=== PATIENT | female | born 1940 | race Caucasian/White ===

== ENCOUNTER 2016-08-04 13:14 | Emergency (ER) | payer OTHER ==
[~2016-08-04 13:14] MED LIST: AUGMENTIN 875 M1 TAB PO; LEVOTHYROXINE88 MCG PO; MECLIZINE HCL25 MG PO; MULTI-DAY VITA1 EACH PO; NORTRIPTYLINE H25 M2 PO; TRANSDERM-SCOP1 EACH TOP
[2016-08-04 13:27] VITALS: BP 143/67
--- NOTE | 2016-08-04 13:42 | ED GI/GU/ABDOMINAL COMPLAINT ---
History of Present Illness General Chief Complaint: Abdominal Pain/Flank Pain Stated Complaint: ABD PAIN Source: patient, old records Exam Limitations: no limitations Vital Signs & Intake/Output Vital Signs & Intake/Output Vital Signs Date Time Temp Pulse Resp B/P Pulse O2 O2 Flow FiO2 Ox Delivery Rate 08/04 1412 99 Room Air 08/04 1327 97.9 76 22 143/67 98 Allergies Coded Allergies: NO KNOWN ALLERGIES (03/09/16) Reconcile Medications Ciprofloxacin HCl (Cipro) 500 MG TABLET 1 TAB PO BID diverticulitis Escitalopram Oxalate 10 MG TABLET 1 TAB PO DAILY MENTAL HEALTH (Reported) Levothyroxine Sodium 88 MCG TABLET 1 TAB PO DAILY AC THYROID (Reported) Metronidazole 500 MG TABLET 1 TAB PO TID diverticulitis Multivitamin (Multi-Day Vitamins) 1 EACH TABLET 1 TAB PO DAILY SUPPLEMENT ( Reported) Triage Note: PER PT ABD PAIN LOW PELVIC AREA TO BACK TAIL BONE X 3 DAYS PER PT THOUGHT I PULLED A MUSCLE BUT IT STILL HURTS, OCCAS DIARRHEA X 3 DAYS TOO Triage Nurses Notes Reviewed? yes ? n Is pt currently ? No HPI: Patient is a 76-year-old female presents complaining of lower abdominal pain that radiates to her back. Pain onset 2 days ago. 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 Pain is waxing and waning currently mild, worsens with walking, palpation, and when she has the urge to have a bowel movement. Fever of 101F yesterday. A couple episodes of loose stool today. Decreased appetite since onset of pain. Patient denies nausea, vomiting, urinary symptoms (DEV TAVARES,REYNOLD) Past History Travel History Traveled to [place] past 21 day No Medical History Any Pertinent Medical History? 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 No (REYNOLD SILVESTRE) Review of Systems Review of Systems Constitutional: Reports: fever, malaise. EENTM: Reports: no symptoms. Respiratory: Denies: cough, short of breath. Cardiovascular: Denies: chest pain. GI: Reports: see HPI. Genitourinary: Denies: dysuria, frequency. Musculoskeletal: Reports: back pain. Skin: Reports: no symptoms. Neurological/Psychological: Reports: no symptoms. Hematologic/Endocrine: Reports: no symptoms. Immunologic/Allergic: Reports: no symptoms. (REYNOLD SILVESTRE) Physical Exam Physical Exam General Appearance: alert, awake Head: atraumatic, normal appearance Eyes: Bilateral: normal appearance, PERRL, EOMI. Ears, Nose, Throat, Mouth: hearing grossly normal, moist mucous membrane Neck: normal inspection, supple, full range of motion Respiratory: normal breath sounds, chest non-tender, no respiratory distress, lungs clear Cardiovascular: regular rate/rhythm (no appreciable murmur) Gastrointestinal: normal bowel sounds, soft, left lower quadrant tenderness with mild guarding Back: normal inspection, normal range of motion, no vertebral tenderness, no cva tenderness Extremities: normal range of motion Neurologic/Psych: no motor/sensory deficits, awake, alert, oriented x 3, normal gait, normal mood/affect Skin: intact, normal color, warm/dry Core Measures ACS in differential dx? No Severe Sepsis Present: No Septic Shock Present: No (REYNOLD SILVESTRE) Progress Differential Diagnosis: AAA, diverticulitis, hepatitis, hernia, ischemic bowel, inflamm bowel dis, kidney stone, ovarian cyst, ovarian torsion, pancreatitis, PID/cervicitis, PUD/GERD, perforated viscous, SBO, UTI/pyelo, muscle strain Plan of Care: Orders Procedure Date/time Status LIPASE 08/04 1349 Complete LACTIC ACID 08/04 1349 Complete COMPREHENSIVE METABOLIC PANEL 08/04 1349 Complete CBC WITHOUT DIFFERENTIAL 08/04 1349 Complete Laboratory Tests 08/04/16 1649: Lactic Acid Cancelled 08/04/16 1404: Anion Gap 8, Estimated GFR > 60, BUN/Creatinine Ratio 20.0, Glucose 100 H, Lactic Acid 0.6 L, Calcium 9.1, Total Bilirubin 0.7, AST 12 L, ALT 23, Alkaline Phosphatase 45, Total Protein 5.8 L, Albumin 3.3 L, Globulin 2.5, Albumin/Globulin Ratio 1.3, Lipase 52, CBC w Diff NO MAN DIFF REQ, RBC 3.92 L, MCV 82.0, MCH 27.1, RDW 13.2, MPV 7.0 L, Gran % 66.3, Lymphocytes % 21.0, Monocytes % 10.3 H, Eosinophils % 1.8, Basophils % 0.6, Absolute Granulocytes 4.5, Absolute Lymphocytes 1.4, Absolute Monocytes 0.7 H, Absolute Eosinophils 0.1, Absolute Basophils 0, PUBS MCHC 33.0 08/04/16 1349: Urine Color Cancelled, Urine Clarity Cancelled, Urine pH Cancelled, Ur Specific [place] Cancelled, Urine Protein Cancelled, Urine Ketones Cancelled, Urine Nitrite Cancelled, Urine Bilirubin Cancelled, Urine Urobilinogen Cancelled, Ur Leukocyte Esterase Cancelled, Ur Microscopic Cancelled, Urine Hemoglobin Cancelled, Urine Glucose Cancelled Patient declined pain medication or antinausea medication on initial exam. 08/04/2016 2:11:14 PM: Discussed with Dr. Orellana 08/04/2016 3:39:38 PM: Results of labs and CT scan discussed with patient. Patient nontoxic appearing, tolerating oral intake, afebrile, white blood cell count and lactic acid unremarkable. Appears stable to be discharged on oral antibiotics with close outpatient follow-up. (DEV TAVARES,REYNOLD) Diagnostic Imaging: Viewed by Me: CT Scan. Discussed w/RAD: CT Scan. Radiology Impression: PATIENT: CORKY MI PRESENT AGE: 76 PATIENT ACCOUNT NO: [id number] : 40 LOCATION: [facility] [place] ORDERING PHYSICIAN: REYNOLD TAVARES SERVICE DATE: 08/04/16 EXAM TYPE: CAT - CT ABD & PELVIS W IV CONTRAST EXAMINATION: CT ABDOMEN AND PELVIS WITH CONTRAST CLINICAL INFORMATION: Left lower quadrant abdominal pain and tenderness COMPARISON: , Fever 10/30/2011 CT scan abdomen and pelvis TECHNIQUE: Multidetector volumetric imaging was performed of the abdomen and pelvis before and after the IV administration of 95 mL of Optiray 320 intravenous contrast. Sagittal and coronal reformatted images were obtained on the technologist's workstation. DLP: 853.78 mGy-cm FINDINGS: LUNG BASES: The visualized lung bases are unremarkable. LIVER, GALLBLADDER, AND BILIARY TREE: The liver is normal in size, shape, and attenuation. No focal hepatic lesion or biliary ductal dilatation is present. The gallbladder is absent, prior cholecystectomy. PANCREAS: Unremarkable. SPLEEN: Unremarkable. ADRENAL GLANDS: The right adrenal gland is unremarkable. There is an 2.0 cm fat density mass in the left adrenal gland, representing a fat-containing adrenal adenoma. It has not changed since the comparison CT scan. KIDNEYS AND URETERS: The kidneys are normal in size, shape, and attenuation. No hydronephrosis, hydroureter, or calculi seen. No perinephric stranding. BLADDER: Unremarkable. GASTROINTESTINAL TRACT: The stomach, duodenum and small bowel loops are unremarkable. The appendix is visualized and is within normal limits. Severe diverticular disease of colon noted. There are inflammatory changes involving the mid to distal sigmoid colon, surrounding some inflamed diverticuli and represent changes of acute diverticulitis. There is no CT evidence of microperforation or pericolonic collection. The inflammation involves a segment of sigmoid colon that measures about 10 cm in length. There is no pelvic or abdominal free fluid or free air. ABDOMINAL WALL: There are 3 fat-containing anterior abdominal wall hernias, located just above, at the level and below the umbilicus. LYMPH NODES: Multiple mildly enlarged mesenteric lymph nodes are seen in the left lower quadrant of the abdomen, and at the root of mesentery likely reactive to the sigmoid diverticulitis. VASCULAR: Atherosclerotic calcifications of abdominal aorta and major branches noted. No aneurysmal dilatation. PELVIC VISCERA: The uterus is absent. No adnexal masses seen. OSSEOUS STRUCTURES: Degenerative changes at L4- L5 and L5-S1 with vacuum disc phenomenon and marginal osteophytosis noted. There is mild decreased vertebral body height of L1 within the sclerosis of the L1 vertebral body, fairly similar to the comparison CT scan and suggestive of prior vertebroplasty. IMPRESSION: 1. Acute diverticulitis involving the mid to distal sigmoid colon without evidence of perforation or pericolonic collection. 2. Fat- containing left adrenal adenoma. 3. Prior cholecystectomy. 4. Fat-containing anterior abdominal wall hernia. 5. Atherosclerosis. DICTATED BY: SAMUEL SANTIZO MD DATE/TIME DICTATED:08/04/161506 SOAP TENDER:NINI DATE/TIME TRANSCRIBED:08/04/161506 CONFIDENTIAL, DO NOT COPY WITHOUT APPROPRIATE AUTHORIZATION. <Electronically signed in Other Vendor System> SIGNED BY: SAMUEL SANTIZO MD 08/04/16 1532 Initial ED EKG: none (REYNOLD SILVESTRE) Departure Departure Time of Disposition: 1540 Disposition: HOME OR SELF CARE Condition: Stable Clinical Impression Primary Impression: Acute diverticulitis Referrals: SANDRA WAKEFIELD,EMILI Pascal (PCP/Family) Additional Instructions: Clear liquid diet for the next 24 hours then slowly advance your diet as tolerated. Follow-up with your primary doctor within the next 2-3 days for recheck and further evaluation. Call tomorrow morning for appointment. Return to the emergency department if you develop fevers, your pain is increasing, your are unable to stay hydrated, or worsening of symptoms. Departure Forms: Customer Survey General Discharge Information Prescriptions: Current Visit Scripts Ciprofloxacin HCl (Cipro) 1 TAB PO BID #20 TAB Metronidazole 1 TAB PO TID #30 TAB (REYNOLD SILVESTRE) PA/AFFILIATE MARKETING MANAGER Co-Sign Statement Statement: ED Attending supervision documentation- [X] I saw and evaluated the patient. I have also reviewed all the pertinent lab results and diagnostic results. I agree with the findings and the plan of care as documented in the PA's/AFFILIATE MARKETING MANAGER's documentation. [X] I have reviewed the ED Record and agree with the PA's/AFFILIATE MARKETING MANAGER's documentation. [] Additions or exceptions (if any) to the PAs/AFFILIATE MARKETING MANAGER's note and plan are summarized below: [] (WEI WAKEFIELD,SARA Hay)
[2016-08-04] MEDS ORDERED: ESCITALOPRAM OX10 MG PO (13:55)
[2016-08-04 14:18] LABS: ABSOLUTE BASOPHIL COUNT 0 /CUMM (0.0-0.2); ABSOLUTE EOSINOPHIL COUNT 0.1 /CUMM (0.0-0.7); ABSOLUTE GRANULOCYTE CT 4.5 /CUMM (1.4-6.5); ABSOLUTE LYMPH COUNT 1.4 /CUMM (1.2-3.4); ABSOLUTE MONOCYTE COUNT 0.7 /CUMM (0.10-0.60); BASOPHIL % 0.6 % (0.0-2.0); EOSINOPHIL % 1.8 % (0-5); GRANULOCYTE % 66.3 % (42.2-75.2); HEMATOCRIT 32.2 % (37-47); MEAN CORPUSCULAR HGB 27.1 PG (27.0-31.0); PLATELET COUNT 210 /CUMM (130-400); RBC DISTRIBUTION WIDTH 13.2 % (11.5-14.5); RED BLOOD CELL CT 3.92 /CUMM (4.20-5.40); WHITE BLOOD CELL COUNT 6.9 /CUMM (4.8-10.8)
--- NOTE | 2016-08-04 15:32 | CT SCAN REPORT ---
EXAMINATION: CT ABDOMEN AND PELVIS WITH CONTRAST CLINICAL INFORMATION: Left lower quadrant abdominal pain and tenderness COMPARISON: , Fever 10/30/2011 CT scan abdomen and pelvis TECHNIQUE: Multidetector volumetric imaging was performed of the abdomen and pelvis before and after the IV administration of 95 mL of Optiray 320 intravenous contrast. Sagittal and coronal reformatted images were obtained on the technologist's workstation. DLP: 853.78 mGy-cm FINDINGS: LUNG BASES: The visualized lung bases are unremarkable. LIVER, GALLBLADDER, AND BILIARY TREE: The liver is normal in size, shape, and attenuation. No focal hepatic lesion or biliary ductal dilatation is present. The gallbladder is absent, prior cholecystectomy. PANCREAS: Unremarkable. SPLEEN: Unremarkable. ADRENAL GLANDS: The right adrenal gland is unremarkable. There is an 2.0 cm fat density mass in the left adrenal gland, representing a fat-containing adrenal adenoma. It has not changed since the comparison CT scan. KIDNEYS AND URETERS: The kidneys are normal in size, shape, and attenuation. No hydronephrosis, hydroureter, or calculi seen. No perinephric stranding. BLADDER: Unremarkable. GASTROINTESTINAL TRACT: The stomach, duodenum and small bowel loops are unremarkable. The appendix is visualized and is within normal limits. Severe diverticular disease of colon noted. There are inflammatory changes involving the mid to distal sigmoid colon, surrounding some inflamed diverticuli and represent changes of acute diverticulitis. There is no CT evidence of microperforation or pericolonic collection. The inflammation involves a segment of sigmoid colon that measures about 10 cm in length. There is no pelvic or abdominal free fluid or free air. ABDOMINAL WALL: There are 3 fat-containing anterior abdominal wall hernias, located just above, at the level and below the umbilicus. LYMPH NODES: Multiple mildly enlarged mesenteric lymph nodes are seen in the left lower quadrant of the abdomen, and at the root of mesentery likely reactive to the sigmoid diverticulitis. VASCULAR: Atherosclerotic calcifications of abdominal aorta and major branches noted. No aneurysmal dilatation. PELVIC VISCERA: The uterus is absent. No adnexal masses seen. OSSEOUS STRUCTURES: Degenerative changes at L4-L5 and L5-S1 with vacuum disc phenomenon and marginal osteophytosis noted. There is mild decreased vertebral body height of L1 within the sclerosis of the L1 vertebral body, fairly similar to the comparison CT scan and suggestive of prior vertebroplasty. IMPRESSION: 1. Acute diverticulitis involving the mid to distal sigmoid colon without evidence of perforation or pericolonic collection. 2. Fat-containing left adrenal adenoma. 3. Prior cholecystectomy. 4. Fat-containing anterior abdominal wall hernia. 5. Atherosclerosis.
[2016-08-04] MEDS ORDERED: CIPRO500 M1 PO (15:42)
[2016-08-04] MEDS ORDERED: METRONIDAZOLE500 M1 PO (15:42)
== END 2016-08-04 15:52 ==
LOC: ERH 13:14
PROVIDERS: Physician Assistant
DX: K57.92 Diverticulitis of intestine, part unspecified, without perforation or abscess without bleeding (principal)
CPT/HCPCS: 74177

== ENCOUNTER 2016-11-08 02:45 | Inpatient (IN) | payer OTHER ==
[~2016-11-08] VITALS: Ht 154.9 cm; Wt 79.8 kg
[~2016-11-08 02:45] MED LIST changes: +CIPRO500 M1 PO; +ESCITALOPRAM OX10 MG PO; +METRONIDAZOLE500 M1 PO
--- NOTE | 2016-11-08 03:20 | NUR ---
ARRIVED ER 1 AMBULATORY, C/O LOWER ABD PAIN FOR SEVERAL DAYS,NORMAL BM,HX DIVERTICULITIS
--- NOTE | 2016-11-08 04:20 | NUR ---
EVALUATED BY DR TOM
--- NOTE | 2016-11-08 04:26 | ED GI/GU/ABDOMINAL COMPLAINT ---
See Addendum History of Present Illness General Chief Complaint: Abdominal Pain/Flank Pain Stated Complaint: PT C/O ABD PAIN X'S "FEW DAY'S" DENIES V/D Source: patient, old records Exam Limitations: no limitations Vital Signs & Intake/Output Vital Signs & Intake/Output Vital Signs Date Time Temp Pulse Resp B/P B/P Pulse O2 O2 Flow FiO2 Mean Ox Delivery Rate 11/08 0633 98.9 70 18 134/61 95 Room Air 11/08 0321 97.5 88 18 148/78 95 Room Air Allergies Coded Allergies: NO KNOWN ALLERGIES (03/09/16) Reconcile Medications Ciprofloxacin HCl (Cipro) 500 MG TABLET 1 TAB PO BID diverticulitis Escitalopram Oxalate 10 MG TABLET 1 TAB PO DAILY MENTAL HEALTH (Reported) Levothyroxine Sodium 88 MCG TABLET 1 TAB PO DAILY AC THYROID (Reported) Metronidazole 500 MG TABLET 1 TAB PO TID diverticulitis Multivitamin (Multi-Day Vitamins) 1 EACH TABLET 1 TAB PO DAILY SUPPLEMENT ( Reported) Triage Note: ARRIVED ER 1 AMBULATORY, C/O LOWER ABD PAIN FOR SEVERAL DAYS,NORMAL BM,HX DIVERTICULITIS Triage Nurses Notes Reviewed? yes LMP (ages 10-50): post menopausal ? n Is pt currently ? No Onset: 3 days Duration: day(s): Timing: recent history Quality/Severity: cramping, moderate, severe Location: left lower quadrant, periumbilical Radiation: no radiation Activities at Onset: none Prior Abdominal Problems: similar symptoms Past Sexual History: Unobtainable at this time Modifying Factors: Worsens With: movement, palpation. Associated Symptoms: abdominal pain HPI: 3 days prior to admission patient complains of progressive left lower quadrant crampy moderate to severe pain radiating the periumbilical area. She denies fever chills nausea vomiting diarrhea chest pain cough shortness of breath headache dysuria rash bleeding (ALEJANDRO WAKEFIELD,KARLO) Past History Travel History Traveled to [place] past 21 day No Medical History Any Pertinent Medical History? 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 No (KARLO ALLEN MD) Review of Systems Review of Systems Constitutional: Reports: no symptoms. EENTM: Reports: no symptoms. Respiratory: Reports: no symptoms. Cardiovascular: Reports: no symptoms. GI: Reports: see HPI, abdominal pain. Genitourinary: Reports: no symptoms. Musculoskeletal: Reports: no symptoms. Skin: Reports: no symptoms. Neurological/Psychological: Reports: no symptoms. Hematologic/Endocrine: Reports: no symptoms. Immunologic/Allergic: Reports: no symptoms. All Other Systems: Reviewed and Negative (KARLO ALLEN MD) Physical Exam Physical Exam General Appearance: well developed/nourished, alert, awake, anxious, moderate distress, obese Head: atraumatic, normal appearance Eyes: Bilateral: normal appearance, PERRL, EOMI, normal inspection. Ears, Nose, Throat, Mouth: hearing grossly normal, moist mucous membrane Neck: normal inspection, supple, full range of motion, normal alignment Respiratory: normal breath sounds, chest non-tender, no respiratory distress, quiet respiration, lungs clear Cardiovascular: regular rate/rhythm, normal peripheral pulses, norml femoral pulses equa Peripheral Pulses: 4+ carotid (R), 4+ carotid (L) Gastrointestinal: normal bowel sounds, soft, guarding, rebound, tenderness Back: normal inspection, normal range of motion Extremities: normal range of motion, no ligament instability Neurologic/Psych: no motor/sensory deficits, awake, alert, oriented x 3, normal gait, normal mood/affect, wash rack operator II-XII nml as tested Skin: intact, normal color, warm/dry Core Measures ACS in differential dx? No Severe Sepsis Present: No Septic Shock Present: No (KARLO ALLEN MD) Progress Differential Diagnosis: bowel obstruction, diverticulitis, hernia Plan of Care: Orders Procedure Date/time Status URINALYSIS 11/08 424 Complete LIPASE 11/08 424 Complete COMPREHENSIVE METABOLIC PANEL 11/08 424 Complete CBC WITHOUT DIFFERENTIAL 11/[address] ABD & PELVIS W IV CONTRAST 11/08 424 Active Laboratory Tests 11/08/16 0455: Urinalysis MOD H, Urine Color YEL, Urine Clarity HAZY H, Urine pH 6.0, Ur Specific [place] 1.025, Urine Protein TRACE H, Urine Ketones NEG, Urine Nitrite NEG, Urine Bilirubin NEG, Urine Urobilinogen 1.0, Ur Leukocyte Esterase SMALL H , Ur Microscopic SEDIMENT EXAMINED, Urine WBC 5-10 H, Ur Epithelial Cells MOD H, Urine Bacteria MOD H, Urine Mucus MOD H, Urine Hemoglobin NEG, Urine Glucose NEG 11/08/16 0440: Anion Gap 7, Estimated GFR > 60, BUN/Creatinine Ratio 20.0, Glucose 113 H, Calcium 8.8, Total Bilirubin 0.9, AST 14, ALT 23, Alkaline Phosphatase 52, Total Protein 6.3, Albumin 4.0, Globulin 2.3, Albumin/Globulin Ratio 1.7, Lipase 87, CBC w Diff NO MAN DIFF REQ, RBC 4.37, MCV 82.4, MCH 27.5, RDW 15.0 H, MPV 7.3 L, Gran % 68.7, Lymphocytes % 20.1 L, Monocytes % 9.3, Eosinophils % 1.4, Basophils % 0.5, Absolute Granulocytes 4.8, Absolute Lymphocytes 1.4, Absolute Monocytes 0.6, Absolute Eosinophils 0.1, Absolute Basophils 0, PUBS MCHC 33.4 Initial ED EKG: none Hand-Off Endorsed To: NAYELI MATTHEW DO Endorsed Time: 0700 Pending: CT (KARLO ALLEN MD) Departure Departure Disposition: STILL A PATIENT Condition: Stable Clinical Impression Primary Impression: Diverticulitis Qualifiers: Diverticulitis site: unspecified part of intestinal tract Diverticulitis bleeding: without bleeding Diverticulitis complication: unspecified complication status Qualified Code: K57.92 - Diverticulitis of intestine, part unspecified, without perforation or abscess without bleeding Referrals: EMILI FLORES MD (PCP/Family) Departure Forms: Customer Survey General Discharge Information (KARLO ALLEN MD) Departure Comments 11/08/16 7:16 am The patient was signed out to me by Dr. Allen. She is pending CT scan of the abdomen and pelvis abdomen is soft and she has diffuse tenderness. Adequate pain relief with morphine (NAYELI MATTHEW DO)
--- NOTE | 2016-11-08 04:45 | NUR ---
IV ESTABLISHED LABS DRAWN AND SENT MEDICATED WITH TORADOL AND ZOFRAN ORDERED
[2016-11-08 04:55] LABS: ABSOLUTE BASOPHIL COUNT 0 /CUMM (0.0-0.2); ABSOLUTE EOSINOPHIL COUNT 0.1 /CUMM (0.0-0.7); ABSOLUTE GRANULOCYTE CT 4.8 /CUMM (1.4-6.5); ABSOLUTE LYMPH COUNT 1.4 /CUMM (1.2-3.4); ABSOLUTE MONOCYTE COUNT 0.6 /CUMM (0.10-0.60); BASOPHIL % 0.5 % (0.0-2.0); EOSINOPHIL % 1.4 % (0-5); GRANULOCYTE % 68.7 % (42.2-75.2); HEMATOCRIT 36.1 % (37-47); MEAN CORPUSCULAR HGB 27.5 PG (27.0-31.0); MEAN CORPUSCULAR HGB CONC 33.4 G/DL (33.0-37.0); MEAN CORPUSCULAR VOLUME 82.4 FL (81.0-99.0); MEAN PLATELET VOLUME 7.3 FL (7.4-10.4); PLATELET COUNT 205 /CUMM (130-400); RED BLOOD CELL CT 4.37 /CUMM (4.20-5.40)
--- NOTE | 2016-11-08 06:25 | NUR ---
PT AWARE OF WAIT FOR CAT SCAN STILL C/O ALOT OF PAIN MORPHINE [address] ALLEN
--- NOTE | 2016-11-08 06:34 | NUR ---
ASSUMED CARE, PT STATES THAT SHE HAS BEEN HAVING L SIDE ABD PAIN THAT RADIATES ACROSS ABDOMEN AND INTO HER GROIN AREA FOR THE PAST 2 DAYS, PT DENIES PAIN AT THIS TIME, STATES THAT SHE WAS JUST MEDICATED WITH MORPHINE PRIOR TO THIS NURSE ARRIVAL. DENIES N/V AT THIS TIME. IV FLUIDS INFUSING. PT AWARE THAT SHE IS WAITING FOR CT SCAN.
--- NOTE | 2016-11-08 07:35 | NUR ---
PT TO CT SCAN VIA STRETCHER AT THIS TIME
--- NOTE | 2016-11-08 08:27 | CT SCAN REPORT ---
EXAMINATION: CT ABDOMEN AND PELVIS WITH CONTRAST CLINICAL INFORMATION: Left lower quadrant abdominal tenderness, guarding, rebound. History of diverticulitis. COMPARISON: CT abdomen and pelvis of 08/04/2016, 10/30/2011, 07/22/2010. Abdominal MRI of 10/31/2011. Limited abdominal ultrasound of 10/30/2011. Chest x-ray of 12/24/2011. TECHNIQUE: Multidetector volumetric CT imaging of the abdomen and pelvis was acquired following intravenous administration of 95 mL of Optiray 320. Post processing was performed at a dedicated workstation. Multiplanar 2-D reformatted images are submitted. DLP: 779.83 mGy-cm FINDINGS: The lung bases are clear. The gallbladder is surgically absent. No intrahepatic biliary ductal dilatation. Mild dilatation of the proximal common bile duct measuring 1.3 cm is a stable finding and can be seen in the setting of prior cholecystectomy. No filling defect is noted in the common bile duct. The liver is normal in size, shape and attenuation. A small subcapsular hypodense lesion in hepatic segment 7 measuring 0.8 cm (series 2, image 15) is a stable finding since the previous study of 2010 and may represent a cyst or a hemangioma. No new liver lesions. The spleen, pancreas, right adrenal gland and kidneys are unremarkable. A 1.4 cm splenule is noted on the anterior medial aspect of the mid spleen. 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 There is moderate diverticulosis of the mid to distal descending colon as well as the sigmoid colon. Pericolonic inflammatory changes are noted at the junction of the distal descending colon and the proximal sigmoid colon with thickening of the small segment of the proximal sigmoid colon which is likely reactive. The findings are consistent with acute diverticulitis. On the previous study of 08/04/2016, a mid segment of the sigmoid colon was involved. There is no evidence of focal diverticular perforation or abscess collection. No evidence of thickening of the wall of the remainder of the colon. An appendix is not clearly identified, however, there are no inflammatory changes in the expected location of the appendix. The stomach and small bowel are not dilated. There is no evidence of free intraperitoneal air or fluid. No lymphadenopathy. The aortoiliac vessels are normal in caliber. There is mild scattered calcific atherosclerosis of the aortoiliac vessels. A fat-containing umbilical hernia is noted with the hernial neck measuring 1.6 cm in craniocaudal and 2.1 cm in transverse dimension. The hernia measures 2.9 x 2.7 x 4.2 cm. There is a stable infraumbilical lower abdominal anterior midline hernia containing fat, approximately 7 cm caudal to the umbilicus measuring 3.8 x 2.1 x 5.1 cm with the hernial neck measuring 1.3 x 1.2 cm in craniocaudal and transverse dimensions; this hernia has not significantly changed since the study of 2010. The uterus is not seen, likely surgically absent. No adnexal mass. The urinary bladder is underdistended, however, unremarkable. There is no evidence of suspicious osseous lesion. Vertebroplasty changes are again noted in the body of L1. On the rickshaw driver view, note is made of a moderate anterior wedge compression of the T7 and T8 vertebral bodies, a stable finding when compared to the previous chest x-ray of 12/24/2011. IMPRESSION: 1. Findings consistent with acute diverticulitis involving a portion of the distal descending colon and the proximal sigmoid colon with reactive wall thickening of the proximal sigmoid colon. No evidence of focal diverticular perforation or abscess collection. No free intraperitoneal air or fluid. 2. A 2.0 x 1.6 cm left adrenal myelolipoma is stable since the previous study of 2010. 3. Anterior abdominal wall fat-containing hernias as described above. 4. A subcentimeter low-attenuation hepatic segment 7 lesion is stable since the previous study of 2010 and may represent a cyst or a hemangioma.
--- NOTE | 2016-11-08 09:21 | NUR ---
PT AWAKE AND ALERT WATCHING TV AT THIS TIME. PAIN 09/28 . PT AWARE THAT WAITING ON CT RESULTS
--- NOTE | 2016-11-08 09:35 | NUR ---
UNASYN INFUSING AT THIS TIME
--- NOTE | 2016-11-08 09:45 | NUR ---
DR MATTHEW AT BEDSIDE TO DISCUSS PLAN OF CARE AT THIS TIME. PT AWARE THAT SHE WILL BE ADMITTED ETO THE HOSPITAL DUE TO DIVERTICULITIS
--- NOTE | 2016-11-08 10:17 | NUR ---
PT MEDICATED WITH MORPHINE 4MG IV PER ORDER FOR 11/28 LLQ PAIN THAT RADIATES TO MID ABD AT THIS TIME
--- NOTE | 2016-11-08 10:22 | NUR ---
HOUSE STAFF AT BEDSIDE
--- NOTE | 2016-11-08 10:41 | NUR ---
BED ASSIGNMENT 209-2
--- NOTE | 2016-11-08 10:56 | History & Physical ---
General Information and HPI MD Statement: I have seen and personally examined CORKY MI and documented this H&P. The patient is a 76 year old F who presented with a patient stated chief complaint of [ABDOMINAL PAIN]. Source of Information: patient Exam Limitations: no limitations History of Present Illness: Patient is a 76-year-old postmenopausal female presented with chief complaints of abdominal pain. Pain is started since 7 days, intermittent in nature, located in left lower quadrant and periumbilical area, cramping in nature, moderate to severe in intensity,radiating to back, aggravated with movement and palpation. She had associated nausea and increase number of bowel movemnets although stool was normal in consistency. She was diagnosed as having diverticulitis 20 yrs ago and she was admitted for that in [facility] for that for 4 -5 days. Her last episode was 3 months ago and for which she was given 14 days of antibiotics as an outpatient. She had family Hx of rectal cancer in mother and she because of that. She had her colonoscopy in age of 50 and multiple polyps were removed. She had her last colonoscopy 3 yrs ago and that was normal. Denies any history of fever, chills, vomiting, chest pain, shortness of breath, headache,trauma and dysuria. Past medical history -hypothyroidism, depression, history of laparoscopic cholecystectomy(2011), history of hysterectomy, Vertebroplasty L1, hemilaminectomy, L4, L5 left. Personal history - She lives with granddaughter, quit smoking 40 years ago, dringk beers occasionally. Family bdygvic-dsldsh-edxrfg cancer - diet because of that, sister - diabetes. Allergies/Medications Allergies: Coded Allergies: NO KNOWN ALLERGIES (03/09/16) Home Med list Ciprofloxacin HCl (Cipro) 500 MG TABLET 1 TAB PO BID diverticulitis Escitalopram Oxalate 10 MG TABLET 1 TAB PO DAILY MENTAL HEALTH (Reported) Levothyroxine Sodium 88 MCG TABLET 1 TAB PO DAILY AC THYROID (Reported) Metronidazole 500 MG TABLET 1 TAB PO TID diverticulitis Multivitamin (Multi-Day Vitamins) 1 EACH TABLET 1 TAB PO DAILY SUPPLEMENT ( Reported) Past History Travel History Traveled to [place] past 21 day No Medical History Neurological: NONE EENT: NONE Cardiovascular: NONE Respiratory: NONE Gastrointestinal: diverticulitis Hepatic: cholelithiasis Renal: NONE Musculoskeletal: NONE Psychiatric: depression Endocrine: hypothyroidism Blood Disorders: NONE Cancer(s): NONE FASHION EDITOR/Reproductive: NONE History of MRSA: No History of VRE: No History of CDIFF: No Tetanus Vaccine: 03/15/14 Surgical History Surgical History: cholecystectomy, hysterectomy Past Family/Social History Family History Relations & Conditions if any MOTHER Rectal cancer Psychosocial History Services at Home: None Sexual History Past Sexual History Unobtainable at this time Review of Systems Review of Systems Constitutional: Denies: no symptoms, see HPI, chills, diaphoresis, fever, malaise, weakness, unexplained weight loss. EENTM: Denies: no symptoms. Cardiovascular: Denies: no symptoms. Exam & Diagnostic Data Last 24 Hrs of Vital Signs/I&O Vital Signs Date Time Temp Pulse Resp B/P B/P Pulse O2 O2 Flow FiO2 Mean Ox Delivery Rate 11/08 0921 97.1 64 18 108/53 96 Room Air 11/08 0633 98.9 70 18 134/61 95 Room Air 11/08 0321 97.5 88 18 148/78 95 Room Air Intake & Output 11/08 1600 11/08 0800 11/08 0000 Intake Total 1000 Output Total Balance 1000 Intake, IV 1000 Patient 80.739 kg Weight Weight Reported by Patient Measurement Method Physical Exam General Appearance Alert, Oriented X3, Cooperative, No Acute Distress Skin No Rashes HEENT Atraumatic, PERRLA, EOMI, antrior teeths are bridged with orthoctics Neck Supple, No JVD, No thryomegaly, No LAD Cardiovascular Normal S1, Normal S2 Lungs Clear to Auscultation, Normal Air Movement Abdomen Soft, tenderness located in left side of middle part of abdoman Neurological Normal Speech Extremities No Clubbing, No Cyanosis, No Edema, Normal Pulses Vascular Normal Pulses, Pulses Symmetrical Last 24 Hrs of Labs/Rory: Laboratory Tests 11/08/16 0455: Urinalysis MOD H, Urine Color YEL, Urine Clarity HAZY H, Urine pH 6.0, Ur Specific [place] 1.025, Urine Protein TRACE H, Urine Ketones NEG, Urine Nitrite NEG, Urine Bilirubin NEG, Urine Urobilinogen 1.0, Ur Leukocyte Esterase SMALL H , Ur Microscopic SEDIMENT EXAMINED, Urine WBC 5-10 H, Ur Epithelial Cells MOD H, Urine Bacteria MOD H, Urine Mucus MOD H, Urine Hemoglobin NEG, Urine Glucose NEG 11/08/16 0440: Anion Gap 7, Estimated GFR > 60, BUN/Creatinine Ratio 20.0, Glucose 113 H, Calcium 8.8, Total Bilirubin 0.9, AST 14, ALT 23, Alkaline Phosphatase 52, Total Protein 6.3, Albumin 4.0, Globulin 2.3, Albumin/Globulin Ratio 1.7, Lipase 87, CBC w Diff NO MAN DIFF REQ, RBC 4.37, MCV 82.4, MCH 27.5, RDW 15.0 H, MPV 7.3 L, Gran % 68.7, Lymphocytes % 20.1 L, Monocytes % 9.3, Eosinophils % 1.4, Basophils % 0.5, Absolute Granulocytes 4.8, Absolute Lymphocytes 1.4, Absolute Monocytes 0.6, Absolute Eosinophils 0.1, Absolute Basophils 0, PUBS MCHC 33.4 Diagnostic Data EKG Results not done Other Results CT abdoman - moderate diverticulosis of the mid to distal descending colon as well as the sigmoid colon. Pericolonic inflammatory changes at the junction of the distal descending colon and the proximal sigmoid colon with thickening of the small segment of the proximal sigmoid colon which is likely reactive. The findings are consistent with acute diverticulitis. no evidence of focal diverticular perforation or abscess collection Mild dilatation of the proximal common bile duct measuring 1.3 cm is a stable A small subcapsular hypodense lesion in hepatic segment 7 measuring 0.8 cm ( series 2, image 15) is a stable finding since the previous study of 2010 A 2.0 x 1.6 cm left adrenal myelolipoma is stable since the previous study of 2010. Anterior abdominal wall fat-containing hernias Assessment/Plan Assessment: Patient is a 76-year-old postmenopausal female presented with chief complaints of abdominal pain. Vital signs at the time of admission-temperature 97.5, pulse 88, respiratory 18, blood pressure 148/78, SPO2 95% on room air Pertinent labs -hematocrit - 36.1, glucose-113, urinalysis-healthy, protein trace, leukocyte esterase small, WBC 5-10, epithelial cells/bacteria/mucus, moderate CT abdomen/pelvis- moderate diverticulosis of the mid to distal descending colon as well as the sigmoid colon. Pericolonic inflammatory changes at the junction of the distal descending colon and the proximal sigmoid colon with thickening of the small segment of the proximal sigmoid colon which is likely reactive. The findings are consistent with acute diverticulitis. no evidence of focal diverticular perforation or abscess collection Mild dilatation of the proximal common bile duct measuring 1.3 cm is a stable A small subcapsular hypodense lesion in hepatic segment 7 measuring 0.8 cm ( series 2, image 15) is a stable finding since the previous study of 2011 A 2.0 x 1.6 cm left adrenal myelolipoma is stable since the previous study of 2010. Anterior abdominal wall fat-containing hernias Assessment Patient had significant past medical history of acute diverticulitis. She was first diagnosed 20 years ago. She had her last episode 3 months ago and was treated with ciprofloxacin and metronidazole. She recovered well, but again 7 days ago she started having intermittent abdomen pain in left lower quadrant along with an episode of diarrhea. Her pain got worse yesterday, so she came to emergency department. CT scan showed evidence of diverticulitis. So we'll treat her for it. Plan Acute diverticulitis without any evidence of perforation and abscess * Admitted into general medical floor * Pain medication according to the pain scale * We'll continue inj Unasyn 1.5mg IV Q6. * We will continue all home medication. * Regular diet * CODE STATUS-full code * Vitals every shift As Ranked By This Provider Problem List: 1. Diverticulitis Qualifiers Diverticulitis site: unspecified part of intestinal tract Diverticulitis bleeding: without bleeding Diverticulitis complication: unspecified complication status Qualified Code: K57.92 - Diverticulitis of intestine, part unspecified, without perforation or abscess without bleeding 2. Hypothyroid 3. Depression Core Measures/Miscellaneous Acute Coronary Syndrome ACS Diagnosis: No Cerebrovascular Accident CVA/TIA Diagnosis: No Congestive Heart Failure CHF Diagnosis: No VTE (View Protocol) VTE Risk Factors: Age > 40, Obesity No [facility] VTE prophylaxis d/t: No contraindications No VTE Pharm Prophylaxis d/t: No contraindications VTE Diagnosis: No VTE Type: NONE VTE Confirmed by (Test): NONE Sepsis (View Protocol) Severe Sepsis Present: No Septic Shock Septic Shock Present: No Miscellaneous Documentation Attending Case Discussed With: Dr COLUNGA Primary Care Physician: EMILI FLORES MD Patient sees these Specialists none Level of Patient Care: General Medicine
--- NOTE | 2016-11-08 11:08 | NUR ---
ATTEMPTED TO CALL REPORT TO THE FLOOR, NURSE TO CALL BACK FOR REPORT
--- NOTE | 2016-11-08 11:32 | PN- Att Addend ---
Attending Addendum Attending Brief Note Patient seen and examined in the emergency room. Plan of care discussed with the admitting resident and the patient. Available lab work and radiology test reports were reviewed. Patient is a 76-year-old postmenopausal female who came to emergency room last night with left lower quadrant pain more than 3 days duration. Patient has history of multiple episodes of diverticulitis in the past last treated about 3 months ago with oral antibiotics. Pain radiates to periumbilical area, cramping in nature, moderate to severe in intensity, aggravated with movement and palpation. She Denies any history of fever, chills , nausea, vomiting, diarrhea, chest pain, shortness of breath, headache and dysuria. Past medical history was reviewed and is significant for history of hypothyroidism, history of laparoscopic cholecystectomy(2011), history of hysterectomy, Vertebroplasty L1, hemilaminectomy, L4, L5 left and diverticulitis. Family social history was reviewed. Exam: General: Patient awake alert oriented without any distress CVS: S1 plus S2 without any murmur or gallops Chest: Few scattered crepitation without any wheeze. There is no respiratory distress. Abdomen: Soft with the moderate tenderness left lower quadrant ; pulses are present ;no guarding or rebound GLOBAL SAFETY OFFICER: Awake alert oriented without any focal neuro deficit and follows command appropriately Extremities: No edema; no clubbing or cyanosis noted Laboratory Tests 11/08 11/08 0455 0440 Chemistry Sodium (137 - 145 mmol/L) 137 Potassium (3.5 - 5.1 mmol/L) 3.9 Chloride (98 - 107 mmol/L) 102 Carbon Dioxide (22 - 30 mmol/L) 27 Anion Gap (5 - 16) 7 BUN (7 - 17 mg/dL) 12 Creatinine (0.5 - 1.0 mg/dL) 0.6 Estimated GFR (>60 ml/min) > 60 BUN/Creatinine Ratio (7 - 25 %) 20.0 Glucose (65 - 99 mg/dL) 113 H Calcium (8.4 - 10.2 mg/dL) 8.8 Total Bilirubin (0.2 - 1.3 mg/dL) 0.9 AST (14 - 36 U/L) 14 ALT (9 - 52 U/L) 23 Alkaline Phosphatase (<127 U/L) 52 Total Protein (6.3 - 8.2 g/dL) 6.3 Albumin (3.5 - 5.0 g/dL) 4.0 Globulin (1.9 - 4.2 gm/dL) 2.3 Albumin/Globulin Ratio (1.1 - 2.2 %) 1.7 Lipase (23 - 300 U/L) 87 Hematology CBC w Diff NO MAN DIFF REQ WBC (4.8 - 10.8 /CUMM) 7.0 RBC (4.20 - 5.40 /CUMM) 4.37 Hgb (12.0 - 16.0 G/DL) 12.1 Hct (37 - 47 %) 36.1 L MCV (81.0 - 99.0 FL) 82.4 MCH (27.0 - 31.0 PG) 27.5 RDW (11.5 - 14.5 %) 15.0 H Plt Count (130 - 400 /CUMM) 205 MPV (7.4 - 10.4 FL) 7.3 L Gran % (42.2 - 75.2 %) 68.7 Lymphocytes % (20.5 - 51.1 %) 20.1 L Monocytes % (1.7 - 9.3 %) 9.3 Eosinophils % (0 - 5 %) 1.4 Basophils % (0.0 - 2.0 %) 0.5 Absolute Granulocytes (1.4 - 6.5 /CUMM) 4.8 Absolute Lymphocytes (1.2 - 3.4 /CUMM) 1.4 Absolute Monocytes (0.10 - 0.60 /CUMM) 0.6 Absolute Eosinophils (0.0 - 0.7 /CUMM) 0.1 Absolute Basophils (0.0 - 0.2 /CUMM) 0 PUBS MCHC (33.0 - 37.0 G/DL) 33.4 Urines Urinalysis MOD H Urine Color (YEL,AMB,STR) YEL Urine Clarity (CLEAR) HAZY H Urine pH (5.0 - 8.0) 6.0 Ur Specific [place] (1.001 - 1.035) 1.025 Urine Protein (NEG,<30 MG/DL) TRACE H Urine Ketones (NEG) NEG Urine Nitrite (NEG) NEG Urine Bilirubin (NEG) NEG Urine Urobilinogen (0.1 - 1.0 EU/dl) 1.0 Ur Leukocyte Esterase (NEG) SMALL H Ur Microscopic SEDIMENT EXAMINED Urine WBC (0 - 2 /HPF) 5-10 H Ur Epithelial Cells (NONE,FEW) MOD H Urine Bacteria (NEG/NONE) MOD H Urine Mucus (FEW,NONE) MOD H Urine Hemoglobin (NEG) NEG Urine Glucose (N MG/DL) NEG CT abdomen pelvis 1. Findings consistent with acute diverticulitis involving a portion of the distal descending colon and the proximal sigmoid colon with reactive wall thickening of the proximal sigmoid colon. No evidence of focal diverticular perforation or abscess collection. No free intraperitoneal air or fluid. 2. A 2.0 x 1.6 cm left adrenal myelolipoma is stable since the previous study of 2010. 3. Anterior abdominal wall fat-containing hernias as described above. 4. A subcentimeter low-attenuation hepatic segment 7 lesion is stable since the previous study of 2010 and may represent a cyst or a hemangioma. Assessment * acute diverticulitis sigmoid colon- recurrent * Abdominal pain * History of cholecystectomy * History of lumbar surgery * History of depression * History of hypothyroidism Plan * Continue IV Unasyn * Okay to feed patient regular diet * Monitor for fever * Can check CBC in 2 days or if clinical status changes such as developing new fever * Oral Tylenol for mild /moderate pain; IV morphine 2 mg every 4 hours when necessary for severe pain * DVT prophylaxis
--- NOTE | 2016-11-08 12:11 | NUR ---
ATTEMPTED TO CALL REPORT AGAIN, PER NURSE HE IS IN THE MIDDLE OF TRANSFERRING A PT OUT AND WILL NEED TO CALL BACK FOR REPORT
--- NOTE | 2016-11-08 12:18 | NUR ---
PT NOTED TO BE SLEEPING AT THIS TIME, REGULAR RESP RATE NOTED
--- NOTE | 2016-11-08 13:14 | NUR ---
REPORT TO [facility]ERRICK AND TRANSPORT CALLED
--- NOTE | 2016-11-08 13:58 | NUR ---
[id number] PATIENT ARRIVED TO THE FLOOR, A+O X3, ON RA, NO S/O DISTRESS, PAIN 09/28, ORIENTED TO HE ROOM, BED LOW, LOCKED CALL LIGHT IN REACH.
[2016-11-08 14:21] VITALS: BP 140/80
--- NOTE | 2016-11-08 16:41 | Admission Certification ---
Admission Certification Certification Statement - As attending physician, I certify that at the time of - admission, based on clinical presentation, severity of - symptoms, need for further diagnostic testing and - therapeutic interventions, and risk of adverse outcomes - without in-hospital treatment, in my clinical assessment, - this patient requires an acute hospital stay for a minimum - of two nights or longer. I have also considered psychsocial - factors such as support system, advanced age, financial - issues, cognitive issues, and failed out-patient treatments, - past re-admission history, safety of patient, and lack of - compliance as applicable. Specific rationale supporting this admission is: Acute sigmoid diverticulitis
[2016-11-08 22:37] VITALS: BP 120/62
[2016-11-09 06:59] VITALS: BP 120/82
--- NOTE | 2016-11-09 08:50 | NUR ---
PT'S MED REC NOTED. [employer]PA[employer] CONTACTED A FEW MISSING FROM PT'S SCHEDULED MEDS. PENDING NEW ORDERS. WILL CONT TO MONITOR.
--- NOTE | 2016-11-09 10:22 | PN- Housestaff ---
Subjective Follow-up For: Diverticulitis Abdominal pain Subjective: I have seen and examined the patient. The patient was lying comfortably in the bed. The patient complained of constipation and lower abdominal pain. She denies any shortness of breath palpitations or chest pain. There were no overnight acute events. Review of Systems Constitutional: Reports: see HPI. Objective Last 24 Hrs of Vital Signs/I&O Vital Signs Date Time Temp Pulse Resp B/P B/P Pulse O2 O2 Flow FiO2 Mean Ox Delivery Rate 11/09 0659 99.1 86 20 120/82 92 11/08 2237 99.6 87 19 120/62 93 Room Air Intake & Output 11/09 1600 11/09 0800 11/09 0000 Intake Total 550 240 120 Output Total Balance 550 240 120 Intake, IV 150 240 Intake, Oral 400 120 Number 0 0 0 Bowel Movements Physical Exam General Appearance: Alert, Oriented X3, Cooperative Skin: No Rashes, No Breakdown Cardiovascular: Normal S1, Normal S2, No Murmurs Lungs: Clear to Auscultation, Normal Air Movement Abdomen: Soft with the moderate tenderness left lower quadrant ; pulses are present ;no guarding or rebound Neurological: Normal Speech Current Medications: Current Medications Sig/Marissa Start time Last Medication Dose Route Stop Time Status Admin Acetaminophen 500 MG Q6P PRN 11/08 1115 AC PO Ampicillin Sodium/ 1,500 MG Q6 11/08 1800 AC 11/09 Sulbactam Sodium IV 1158 Sodium Chloride 100 ML Citalopram 20 MG DAILY 11/08 2000 DC 11/09 Hydrobromide PO 0835 Escitalopram Oxalate 20 MG DAILY AC 11/10 0700 AC PO Escitalopram Oxalate 10 MG DAILY 11/09 1000 DC PO Levothyroxine Sodium 0.088 MG DAILY AC 11/09 0844 AC 11/09 PO 1049 Morphine Sulfate 2 MG Q4P PRN 11/08 1115 AC 11/09 IV 0642 Multivitamins 1 TAB DAILY 11/09 1000 AC 11/09 Therapeutic PO 1049 Polyethylene Glycol 17 GM AT BEDTIME 11/09 2200 AC PO Polyethylene Glycol 17 GM ONCE ONE 11/09 1215 DC 11/09 PO 11/09 1216 1343 Assessment/Plan Assessment: Patient is a 76-year-old postmenopausal female presented with chief complaints of abdominal pain. Vital signs at the time of admission-temperature 97.5, pulse 88, respiratory 18, blood pressure 148/78, SPO2 95% on room air Pertinent labs -hematocrit - 36.1, glucose-113, urinalysis-healthy, protein trace, leukocyte esterase small, WBC 5-10, epithelial cells/bacteria/mucus, moderate CT abdomen/pelvis moderate diverticulosis of the mid to distal descending colon as well as the sigmoid colon. Pericolonic inflammatory changes at the junction of the distal descending colon and the proximal sigmoid colon with thickening of the small segment of the proximal sigmoid colon which is likely reactive. The findings are consistent with acute diverticulitis. no evidence of focal diverticular perforation or abscess collection Mild dilatation of the proximal common bile duct measuring 1.3 cm is a stable A small subcapsular hypodense lesion in hepatic segment 7 measuring 0.8 cm ( series 2, image 15) is a stable finding since the previous study of 2010 A 2.0 x 1.6 cm left adrenal myelolipoma is stable since the previous study of 2010. Anterior abdominal wall fat-containing hernias Assessment Patient had significant past medical history of acute diverticulitis. She was first diagnosed 20 years ago. She had her last episode 3 months ago and was treated with ciprofloxacin and metronidazole. She recovered well, but again 7 days ago she started having intermittent abdomen pain in left lower quadrant along with an episode of diarrhea. Her pain got worse yesterday, so she came to emergency department. CT scan showed evidence of diverticulitis. Plan Acute diverticulitis without any evidence of perforation and abscess * Continue Oral Tylenol for mild /moderate pain; IV morphine 2 mg every 4 hours when necessary for severe pain * continue inj Unasyn 1.5mg IV Q6. * continue all home medication. * Regular diet * Monitor vitals for fever Constipation patient complained of constipation today. * Continue MiraLAX 17 g at bedtime daily. Hypothyroidism * Continue levothyroxine 0.088 mg daily Depression * EsCitalopram 20 mg daily Problem List: 1. Diverticulitis Pain Ratin Pain Location: diffuse pain lower abd pronouced in llq Pain Goal: Pain 4 or less Pain Plan: tynelol morphine Tomorrow's Labs & Rationales: none
--- NOTE | 2016-11-09 11:17 | PN- Att Addend ---
Attending Addendum Attending Brief Note Patient seen and examined. Plan of care discussed with resident and the patient. Available lab work and radiology test reports were reviewed. Pt complains of mild to moderate pain in LLQ. No fever or chills, no N/V. Eating well. Assessment * acute diverticulitis sigmoid colon- recurrent * Abdominal pain * History of cholecystectomy * History of lumbar surgery * History of depression * History of hypothyroidism Plan * Continue IV Unasyn * Okay to feed patient regular diet * Monitor for fever * Can labs onlyl if clinical status changes such as developing new fever * Continue Oral Tylenol for mild /moderate pain; IV morphine 2 mg every 4 hours when necessary for severe pain * DVT prophylaxis * add miralax daily at night Exam: General: Patient awake alert oriented without any distress CVS: S1 plus S2 without any murmur or gallops Chest: Few scattered crepitation without any wheeze. There is no respiratory distress. Abdomen: Soft with the moderate tenderness left lower quadrant ; pulses are present ;no guarding or rebound PERINATAL SPECIALIST: Awake alert oriented without any focal neuro deficit and follows command appropriately Extremities: No edema; no clubbing or cyanosis noted Vital Signs Date Time Temp Pulse Resp B/P B/P Pulse O2 O2 Flow FiO2 Mean Ox Delivery Rate 11/09 0659 99.1 86 20 120/82 92 11/08 2237 99.6 87 19 120/62 93 Room Air 11/08 1421 98.7 80 20 140/80 93 11/08 1312 97.9 66 16 112/70 98 Room Air Intake & Output 11/09 1600 11/09 0800 11/09 0000 Intake Total 240 120 Output Total Balance 240 120 Intake, IV 240 Intake, Oral 120 Number 0 0 Bowel Movements
--- NOTE | 2016-11-09 12:07 | NUR ---
PT C/O CONSTIPATION AND ASKING FOR "SOMETHING" TO HELP HER HAVE A BM. LBM 2 DAYS AGO. PT TAKING IV MORPHINE PRN FOR PAIN. BS PRESENT X4 QUADS. ABDOMEN SOFT AND SLIGHTLY DISTENDED. PT REPORTING SOME FLATUS. PT IS TOLERATING A REGULAR DIET. NO N/V. 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 PENDING POSSIBLE NEW ORDERS. WILL CONT TO MONITOR.
[2016-11-09 14:54] VITALS: BP 124/58
[2016-11-09 23:02] VITALS: BP 130/82
[2016-11-10 06:30] VITALS: BP 130/72
--- NOTE | 2016-11-10 08:46 | PN- Att Addend ---
Attending Addendum Attending Brief Note Patient seen and examined. Plan of care discussed with resident and the patient. Available lab work and radiology test reports were reviewed. Pt complains of mild to moderate pain in LLQ. No fever or chills, no N/V. Eating well. Has not moved her bowels yet. She complains of lower abdominal pressure. Assessment * acute diverticulitis sigmoid colon- recurrent * Abdominal pain * History of cholecystectomy * History of lumbar surgery * History of depression * History of hypothyroidism * Constipation Plan * Continue IV Unasyn * Check labs onlyl if clinical status changes such as developing new fever * Continue Oral Tylenol for mild /moderate pain; IV morphine 2 mg every 4 hours when necessary for severe pain * DVT prophylaxis * Continue miralax twice a day ; add Colace * Possible discharge in a.m. Exam: General: Patient awake alert oriented without any distress CVS: S1 plus S2 without any murmur or gallops Chest: Few scattered crepitation without any wheeze. There is no respiratory distress. Abdomen: Soft with the moderate tenderness left lower quadrant ; pulses are present ;no guarding or rebound HOP WEIGHER: Awake alert oriented without any focal neuro deficit and follows command appropriately Extremities: No edema; no clubbing or cyanosis noted Vital Signs Date Time Temp Pulse Resp B/P B/P Pulse O2 O2 Flow FiO2 Mean Ox Delivery Rate 11/10 0630 98.4 68 20 130/72 93 11/09 2302 97.6 71 20 130/82 92 Room Air 11/09 1454 98.4 71 20 124/58 90 Room Air Intake & Output 11/10 1600 11/10 0800 11/10 0000 Intake Total 550 750 Output Total 350 Balance 200 750 Intake, IV 100 100 Intake, Oral 450 650 Output, Urine 350
--- NOTE | 2016-11-10 10:16 | PN- Housestaff ---
Subjective Follow-up For: Recurrent acute diverticulitis sigmoid colon Abdominal pain Subjective: I have seen and examined the patient. The patientcomplains of [id number] pain in left lower quadrant. She was having breakfast in the morning. She denies any fevers chills nausea or vomiting. She complains of persistent lower abdominal pressure. She has not had a bowel movement yet. She wants something for her constipation. There were no overnight acute events. Review of Systems Constitutional: Reports: see HPI. Objective Last 24 Hrs of Vital Signs/I&O Vital Signs Date Time Temp Pulse Resp B/P B/P Pulse O2 O2 Flow FiO2 Mean Ox Delivery Rate 11/10 0630 98.4 68 20 130/72 93 11/09 2302 97.6 71 20 130/82 92 Room Air 11/09 1454 98.4 71 20 124/58 90 Room Air Intake & Output 11/10 1600 11/10 0800 11/10 0000 Intake Total 550 750 Output Total 350 Balance 200 750 Intake, IV 100 100 Intake, Oral 450 650 Output, Urine 350 Physical Exam General Appearance: Alert, Oriented X3, Cooperative Skin: No Rashes, No Breakdown Neck: Supple Cardiovascular: Normal S1, Normal S2, No Murmurs Lungs: Clear to Auscultation, Normal Air Movement Abdomen: Normal Bowel Sounds, Soft with the moderate tenderness left lower quadrant ; Neurological: Normal Speech Extremities: No Tenderness/Swelling Current Medications: Current Medications Sig/Marissa Start time Last Medication Dose Route Stop Time Status Admin Acetaminophen 500 MG Q6P PRN 11/08 1115 AC PO Ampicillin Sodium/ 1,500 MG Q6 11/08 1800 AC 11/10 Sulbactam Sodium IV 1143 Sodium Chloride 100 ML Docusate Sodium 100 MG DAILY 11/10 1117 AC 11/10 PO 1142 Escitalopram Oxalate 20 MG DAILY AC 11/10 0700 AC 11/10 PO 0644 Levothyroxine Sodium 0.088 MG DAILY AC 11/09 0844 AC 11/10 PO 0644 Morphine Sulfate 2 MG Q4P PRN 11/08 1115 AC 11/10 IV 0606 Multivitamins 1 TAB DAILY 11/09 1000 AC 11/10 Therapeutic PO 1142 Polyethylene Glycol 17 GM AT BEDTIME 11/09 2200 AC 11/10 PO 1142 Assessment/Plan Assessment: Patient is a 76-year-old postmenopausal female presented with chief complaints of abdominal pain. Vital signs at the time of admission-temperature 97.5, pulse 88, respiratory 18, blood pressure 148/78, SPO2 95% on room air Pertinent labs -hematocrit - 36.1, glucose-113, urinalysis-healthy, protein trace, leukocyte esterase small, WBC 5-10, epithelial cells/bacteria/mucus, moderate CT abdomen/pelvis moderate diverticulosis of the mid to distal descending colon as well as the sigmoid colon. Pericolonic inflammatory changes at the junction of the distal descending colon and the proximal sigmoid colon with thickening of the small segment of the proximal sigmoid colon which is likely reactive. The findings are consistent with acute diverticulitis. no evidence of focal diverticular perforation or abscess collection Mild dilatation of the proximal common bile duct measuring 1.3 cm is a stable A small subcapsular hypodense lesion in hepatic segment 7 measuring 0.8 cm ( series 2, image 15) is a stable finding since the previous study of 2011 A 2.0 x 1.6 cm left adrenal myelolipoma is stable since the previous study of 2010. Anterior abdominal wall fat-containing hernias Assessment Patient had significant past medical history of acute diverticulitis. She was first diagnosed 20 years ago. She had her last episode 3 months ago and was treated with ciprofloxacin and metronidazole. She recovered well, but again 7 days ago she started having intermittent abdomen pain in left lower quadrant along with an episode of diarrhea. Her pain got worse yesterday, so she came to emergency department. CT scan showed evidence of diverticulitis. Plan Acute diverticulitis without any evidence of perforation and abscess * Continue Oral Tylenol for mild /moderate pain * IV morphine 2 mg every 4 hours when necessary for severe pain * continue inj Unasyn 1.5mg IV Q6. * continue all home medication. * Regular diet * Monitor vitals for fever Constipation patient complained of constipation today. * Continue MiraLAX 17 g at bedtime daily. Hypothyroidism * Continue levothyroxine 0.088 mg daily Depression * EsCitalopram 20 mg daily Problem List: 1. Acute diverticulitis Pain Ratin Pain Location: LLQ Pain Goal: Pain 4 or less Pain Plan: Oral Tylenol for mild /moderate pain IV morphine 2 mg every 4 hours when necessary for severe pain Tomorrow's Labs & Rationales: none
[2016-11-10] MEDS ORDERED: CIPRO500 M1 PO (11:23)
[2016-11-10] MEDS ORDERED: METRONIDAZOLE500 M1 PO (11:23)
--- NOTE | 2016-11-10 11:25 | Patient Discharge Instructions ---
Discharge Instructions General Discharge Information You were seen/treated for: diverticulitis You had these procedures: antibiotics Watch for these problems: worsening abdominal pain fever chest pain shortness of breath Special Instructions: 1. follow up with PCP 2. finish your antibiotic course Diet Continue normal diet: Yes Activity Activity Self Limited: Yes Acute Coronary Syndrome Inclusion Criteria At DC or during hospital stay patient has or had the following: ACS DIAGNOSIS No Discharge Core Measures Meds if any: Prescribed or Continued at Discharge Meds if any: NOT Prescribed or Continued at Discharge Congestive Heart Failure Inclusion Criteria At DC or during hospital stay patient has or had the following: CHF DIAGNOSIS No Discharge Core Measures Meds if any: Prescribed or Continued at Discharge Meds if any: NOT Prescribed or Continued at Discharge Cerebrovascular accident Inclusion Criteria At DC or during hospital stay patient has or had the following: CVA/TIA Diagnosis No Discharge Core Measures Meds if any: Prescribed or Continued at Discharge Meds if any: NOT Prescribed or Continued at Discharge Venous thromboembolism Inclusion Criteria VTE Diagnosis No VTE Type NONE VTE Confirmed by (Test) NONE Discharge Core Measures - Per Current guidelines, there needs to be overlap - treatment for the first 5 days of Warfarin therapy. - If discharged on Warfarin prior to 5 days of - overlap therapy, the patient will need to be - assessed for post discharge needs including - *Post discharge parental anticoagulation - *Warfarin and/or parental anticoagulation education - *Follow up date to check INR post discharge At least 5 days overlap therapy as Inpatient No Meds if any: Prescribed or Continued at Discharge Note: Overlap Therapy is Warfarin and Anticoagulant Meds if any: NOT Prescribed or Continued at Discharge
[2016-11-10 15:15] VITALS: BP 110/61
[2016-11-10 22:46] VITALS: BP 140/72
--- NOTE | 2016-11-11 05:52 | PN- Housestaff ---
Subjective Follow-up For: Acute Diverticulitis Subjective: I saw and examined the pt today. She states she is doing well. Has mild abdominal pain on the left side but has not required and has not taken any pain medications. Is tolerating PO intake and is ready to go home. Denies n/v/c/d, hematemesis, hematochezia, chest pain, SOB, dysuria/hematuria. Pt is no longer constipated. Review of Systems Constitutional: Denies: see HPI. Cardiovascular: Denies: see HPI. Respiratory: Denies: see HPI. Gastrointestinal: Reports: see HPI. Genitourinary: Denies: see HPI. Objective Last 24 Hrs of Vital Signs/I&O Vital Signs Date Time Temp Pulse Resp B/P B/P Pulse O2 O2 Flow FiO2 Mean Ox Delivery Rate 11/11 0735 97.7 64 20 150/84 96 11/10 2246 98.5 62 18 140/72 96 11/10 1515 98.4 60 20 110/61 94 Room Air Intake & Output 11/11 1600 11/11 0800 11/11 0000 Intake Total 200 100 Output Total Balance 200 100 Intake, IV 200 100 Physical Exam General Appearance: Alert, Oriented X3, Cooperative, No Acute Distress Cardiovascular: Regular Rate, Normal S1, Normal S2 Lungs: Clear to Auscultation Abdomen: Normal Bowel Sounds, Soft, minimal tenderness to palpation LUQ Extremities: Normal Pulses, No Tenderness/Swelling Assessment/Plan Assessment: Patient is a 76-year-old postmenopausal female presented with chief complaints of abdominal pain. Vital signs at the time of admission-temperature 97.5, pulse 88, respiratory 18, blood pressure 148/78, SPO2 95% on room air Pertinent labs -hematocrit - 36.1, glucose-113, urinalysis-healthy, protein trace, leukocyte esterase small, WBC 5-10, epithelial cells/bacteria/mucus, moderate CT abdomen/pelvis moderate diverticulosis of the mid to distal descending colon as well as the sigmoid colon. Pericolonic inflammatory changes at the junction of the distal descending colon and the proximal sigmoid colon with thickening of the small segment of the proximal sigmoid colon which is likely reactive. The findings are consistent with acute diverticulitis. no evidence of focal diverticular perforation or abscess collection Mild dilatation of the proximal common bile duct measuring 1.3 cm is a stable A small subcapsular hypodense lesion in hepatic segment 7 measuring 0.8 cm ( series 2, image 15) is a stable finding since the previous study of 2011 A 2.0 x 1.6 cm left adrenal myelolipoma is stable since the previous study of 2010. Anterior abdominal wall fat-containing hernias Assessment Patient had significant past medical history of acute diverticulitis. She was first diagnosed 20 years ago. She had her last episode 3 months ago and was treated with ciprofloxacin and metronidazole. She recovered well, but again 7 days ago she started having intermittent abdomen pain in left lower quadrant along with an episode of diarrhea. Her pain got worse yesterday, so she came to emergency department. CT scan showed evidence of diverticulitis. Plan Acute diverticulitis without any evidence of perforation and abscess * Continue Oral Tylenol for mild /moderate pain * IV morphine 2 mg every 4 hours when necessary for severe pain * continue inj Unasyn 1.5mg IV Q6. - discharge home on metronidazole and cipro for 5 more days * continue all home medication. * Regular diet * Monitor vitals for fever Constipation patient complained of constipation yesterday. Has resolved with miralax. * Continue MiraLAX 17 g at bedtime daily. Hypothyroidism * Continue levothyroxine 0.088 mg daily Depression * EsCitalopram 20 mg daily Code: Full code Diet: regular DVT PPx: ALPs Dispo: discharge home today Problem List: 1. Acute diverticulitis Pain Ratin Pain Location: Left lower abdomen Pain Goal: Remain pain free Pain Plan: PO tylenol PRN Tomorrow's Labs & Rationales: none
[2016-11-11 07:35] VITALS: BP 150/84
[2016-11-11] MEDS ORDERED: METRONIDAZOLE500 M1 PO (10:39)
[2016-11-11] MEDS ORDERED: CIPRO500 M1 PO ×2 (10:39→15:40)
--- NOTE | 2016-11-11 12:53 | PN- Att Addend ---
Attending Addendum Attending Brief Note Patient seen and examined. Plan of care discussed with resident and the patient. Available lab work and radiology test reports were reviewed. Pt complains of mild to moderate pain in LLQ. No fever or chills, no N/V. Eating well. Has moved her bowels. lower abdominal pressure/pain is better. Assessment * acute diverticulitis sigmoid colon- recurrent * Abdominal pain * History of cholecystectomy * History of lumbar surgery * History of depression * History of hypothyroidism * Constipation Plan * DC Unasyn and change to oral augmentin to complete 7-10 days. * Continue Oral Tylenol for mild /moderate pain * DVT prophylaxis * Continue miralax once a day at home. * DC home today. Total time spent in preparation for discharge plan, patient education, and CMR preparation was 35 minutes. Exam: General: Patient awake alert oriented without any distress CVS: S1 plus S2 without any murmur or gallops Chest: Few scattered crepitation without any wheeze. There is no respiratory distress. 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
--- NOTE | 2016-11-11 15:01 | Discharge Summary ---
Visit Information Visit Dates Admission Date: 11/08/16 Discharge Date: 11/11/16 Hospital Course Course Attending Physician: ROBERTO ANDRE MD Primary Care Physician: EMILI FLORES MD Allergies: Coded Allergies: NO KNOWN ALLERGIES (03/09/16) Discharge Instructions Medications at Discharge Discharge Medications: Continue taking these medications: Levothyroxine Sodium (Levothyroxine Sodium) 88 MCG TABLET 1 Tablet ORAL DAILY BEFORE BREAKFAST Comments: Last Taken:11/11/16 Time: 600 AM Multivitamin (Multi-Day Vitamins) 1 EACH TABLET 1 Tablet ORAL DAILY Comments: PER PT Last Taken:11/11/16 Time: 1115 AM Escitalopram Oxalate (Escitalopram Oxalate) 10 MG TABLET 1 Tablet ORAL DAILY Qty = 90 Comments: Last Taken: 11/11/16 Time: 600 AM Ciprofloxacin HCl (Cipro) 500 MG TABLET 1 Tablet ORAL TWICE DAILY Qty = 10 Instructions: for 5 more days Comments: NOT GIVEN IN HOSPITAL This prescription has been renewed Metronidazole (Metronidazole) 500 MG TABLET 1 Tablet ORAL THREE TIMES DAILY Qty = 15 Instructions: For 5 more days Comments: NOT GIVEN IN HOSPITAL This prescription has been renewed
[2016-11-11] MEDS ORDERED: FLAGYL500 MG PO (15:40)
== END 2016-11-11 14:50 | DRG 392 ==
LOC: ERH 02:45 → 2NB 09:19 → ERHI 09:19 → ENRESERV 10:40 → ENTRNSPT 13:14 → EDTRNSPT 13:21 → EDTRNSPTSTS 13:38 → CMPTRNSPT 13:52 → 2NB 13:52 → ENPENDDIS 11-11 11:49 → 2NB 11-11 14:50
PROVIDERS: Emergency Medicine; ADMIT Hospitalist
DX: K57.32 Diverticulitis of large intestine without perforation or abscess without bleeding (principal); F32.9 Major depressive disorder, single episode, unspecified; E03.9 Hypothyroidism, unspecified; K57.30 Diverticulosis of large intestine without perforation or abscess without bleeding; K59.00 Constipation, unspecified; E66.9 Obesity, unspecified; Z68.33 Body mass index [BMI] 33.0-33.9, adult; D17.79 Benign lipomatous neoplasm of other sites; Z87.891 Personal history of nicotine dependence
CPT/HCPCS: 2NBSP; 74177; 81001; 96361; 96374; 96375; J1885; J2405

== ENCOUNTER 2017-05-27 15:41 | Inpatient (IN) | payer OTHER ==
[~2017-05-27] VITALS: Ht 154.9 cm; Wt 81.6 kg
[~2017-05-27 15:41] MED LIST changes: +ESCITALOPRAM OX20 MG PO; +FLAGYL500 MG PO; +TRAMADOL HCL50 M1 PO
[2017-05-27 16:32] LABS: ABSOLUTE BASOPHIL COUNT 0 /CUMM (0.0-0.2); ABSOLUTE EOSINOPHIL COUNT 0.1 /CUMM (0.0-0.7); ABSOLUTE GRANULOCYTE CT 2.7 /CUMM (1.4-6.5); ABSOLUTE LYMPH COUNT 1.4 /CUMM (1.2-3.4); ABSOLUTE MONOCYTE COUNT 0.5 /CUMM (0.10-0.60); BASOPHIL % 0.8 % (0.0-2.0); EOSINOPHIL % 2.9 % (0-5); GRANULOCYTE % 55.9 % (42.2-75.2); MEAN CORPUSCULAR HGB 26.7 PG (27.0-31.0); MEAN CORPUSCULAR HGB CONC 32.4 G/DL (33.0-37.0); MEAN CORPUSCULAR VOLUME 82.5 FL (81.0-99.0); MEAN PLATELET VOLUME 7.4 FL (7.4-10.4); PLATELET COUNT 272 /CUMM (130-400); RBC DISTRIBUTION WIDTH 13.8 % (11.5-14.5); RED BLOOD CELL CT 3.88 /CUMM (4.20-5.40); WHITE BLOOD CELL COUNT 4.8 /CUMM (4.8-10.8)
--- NOTE | 2017-05-27 18:08 | ED GI/GU/ABDOMINAL COMPLAINT ---
History of Present Illness General Chief Complaint: Abdominal Pain/Flank Pain Stated Complaint: LOWER L ABD PAIN Source: patient, old records Exam Limitations: no limitations Vital Signs & Intake/Output Vital Signs & Intake/Output Vital Signs Date Time Temp Pulse Resp B/P B/P Pulse O2 O2 Flow FiO2 Mean Ox Delivery Rate 05/27 1816 98.0 80 18 137/73 98 Room Air 05/27 1740 96 05/27 1546 97.6 74 20 136/73 96 Room Air Room Air Allergies Coded Allergies: NO KNOWN ALLERGIES (03/09/16) Reconcile Medications Ciprofloxacin HCl (Cipro) 500 MG TABLET 1 TAB PO BID diverticulitis Ciprofloxacin HCl (Cipro) 500 MG TABLET 1 TAB PO BID diverticulitis Escitalopram Oxalate 20 MG TABLET 1 TAB PO DAILY MENTAL HEALTH (Reported) Levothyroxine Sodium 88 MCG TABLET 1 TAB PO DAILY AC THYROID (Reported) Metronidazole (Flagyl) 500 MG TABLET 1 TAB PO TID diverticulitis Metronidazole (Flagyl) 500 MG TABLET 1 TAB PO TID DIVERTICULITIS Tramadol HCl 50 MG TABLET 1-2 TAB PO BIDP PRN pain Tramadol HCl 50 MG TABLET 1-2 TAB PO BIDP PRN PAIN Triage Note: PT TO ED "I WAS IN 2 WEEKS AGO FOR DIVERTICULTIS, I TOOK THE ANTIBIOTICS ORDERED, FINISHED THE PRESCRIPTION, NOW 6/10 LEFT LOWER ABD PAIN". PT DENIES NAUSEA, + DIARRHEA, DENIES URINARY PAIN OR PROBLEMS. BLOODWORK DONE IN TRIAGE. Triage Nurses Notes Reviewed? yes ? n Is pt currently ? No Onset: Abrupt Duration: week(s): (2), constant, getting worse Timing: recent history Quality/Severity: sharpness, severe, stabbing Severity Numbers: 8 Location: left lower quadrant Radiation: no radiation Activities at Onset: none Prior Abdominal Problems: similar symptoms No Modifying Factors: none Associated Symptoms: diarrhea HPI: 76-year-old female with history of previous diverticulitis, hypothyroid anxiety presents to the ER complaining of left lower quadrant all pain sharp stabbing pain going on for the past 2 weeks she was seen here at the time of diagnosis of diverticulitis which she was prescribed Cipro Flagyl. She states the pain is worse and it is not radiating. She reports she has had constant loose watery bowel movements. No black or bloody stools. No nausea or vomiting. No chest pain shortness of breath fever chills no urinary urgency frequency dysuria. She 's been taking [id number] pain medication without improvement. Her past abdominal surgeries are significant for cholecystectomy hysterectomy. She was last admitted in October for diverticulitis and states this feels the same. (Mario Newell) Past History Travel History Traveled to [place] past 21 day No Medical History Any Pertinent Medical History? see below for history Neurological: NONE EENT: NONE Cardiovascular: NONE Respiratory: NONE Gastrointestinal: diverticulitis Hepatic: cholelithiasis Renal: NONE Musculoskeletal: NONE Psychiatric: depression Endocrine: hypothyroidism Blood Disorders: NONE Cancer(s): NONE RN REHABILITATION/Reproductive: NONE History of MRSA: No History of VRE: No History of CDIFF: No Tetanus Vaccine: 03/15/14 Surgical History Surgical History: cholecystectomy, hysterectomy, TONSILECTOMY LUMBAR LAMINECTOMY Psychosocial History Who do you live with Patient/Self Services at Home None What is your primary language Lithuanian Tobacco Use: Never used ETOH Use: occasional use Illicit Drug Use: denies illicit drug use Family History Family History, If Any: MOTHER Rectal cancer Hx Contributory? No (Mario Newell) Review of Systems Review of Systems Constitutional: Reports: see HPI. Comments Review of systems: See HPI, All other systems negative. Constitutional, no chills no fever HEENT: no sore throat no congestion cardiac: no chest pain Skin: no rashes, no change in skin Respiratory: No dyspnea no cough no sputum no hemoptysis GI: nausea no vomiting, diarrhea, : No dysuria No hematuria, no frequency Muscle skeletal: No joint pain, no back pain Neurologic: , no headache Heme/endocrine: No bruising Immunology: No lymphadenopathy (Mario Newell) Physical Exam Physical Exam General Appearance: well developed/nourished, alert, awake Gastrointestinal: soft, tenderness (LLQ) Comments: Well-developed well-nourished person in no acute distress HEENT: Normal EENT exam; PERRL, EOMI, HEAD is atraumatic. moist mucous membranes. Neck: Supple, normal range of motion Back: Nontender, no CVA tenderness. Full range of motion Cardiovascular: Regular rate and rhythms no murmur Respiratory: No respiratory distress. Patient speaking in full complete sentences. Breath sounds clear to auscultation bilaterally: NO W/R/R Abdomen: Soft, LLQ TENDERNESS, nondistended, no appreciable organomegaly. Normal bowel sounds. No rebound/guarding, No appreciable enlargement of the abdominal aorta, No ascites. Extremity: No edema, full range of motion of extremities Neuro: Alert oriented x3, motor sensory normal,There were no obvious focal neurologic abnormalities. Skin: No appreciable rash on exposed skin, skin is warm and dry. no diapohesis, no jaundice Psych: Mood and affect is normal, memory and judgment is normal. Core Measures ACS in differential dx? No Sepsis Present: No Sepsis Focused Exam Completed? No (Heather TAVARES,Mario) Progress Differential Diagnosis: appendicitis, bowel obstruction, diverticulitis, gastritis, hepatitis, inflamm bowel dis, pancreatitis, perforated viscous, SBO, MALIGNANCY Diagnostic Imaging: Viewed by Me: CT Scan. Discussed w/RAD: CT Scan. Radiology Impression: PATIENT: CORKY MI PRESENT AGE: 76 PATIENT ACCOUNT NO: [id number] : 40 LOCATION: ER ORDERING PHYSICIAN: Mario TAVARES SERVICE DATE: 05/27/17 EXAM TYPE: CAT - CT ABD & PELVIS W IV CONTRAST EXAMINATION: CT ABDOMEN AND PELVIS WITH CONTRAST CLINICAL INFORMATION: Left lower quadrant abdominal pain. COMPARISON: CT of the abdomen and pelvis from 05/11/2017. TECHNIQUE: Multidetector volumetric imaging was performed of the abdomen and pelvis following IV administration of 95 mL of Optiray 320 intravenous contrast. Sagittal and coronal reformatted images were obtained on the technologist's workstation. DLP: 825 mGy-cm FINDINGS: LUNG BASES: The visualized lung bases are unremarkable. LIVER, GALLBLADDER, AND BILIARY TREE: The liver is normal in size, shape, and attenuation. No focal hepatic lesion or biliary ductal dilatation is present. There has been prior cholecystectomy. No biliary ductal dilatation. PANCREAS: Unremarkable. SPLEEN: Unremarkable. ADRENAL GLANDS: There is a stable 1.8 cm left adrenal adenoma. KIDNEYS AND URETERS: The kidneys are normal in size, shape , and attenuation. No hydronephrosis, hydroureter, or calculi seen. No perinephric stranding. BLADDER: Under distended. Unremarkable. GASTROINTESTINAL TRACT: There are numerous colonic diverticula. The area of inflammation involving the sigmoid colon seen on 05/11/2017 is improved. There is some mild inflammatory change now visualized along the distal descending colon, slightly more proximally than the previous inflammatory change. There is mild associated wall thickening in this region. There are several diverticula in this area, although none is focally inflamed. No rim-enhancing fluid collection. No extraluminal air. The small bowel loops appear unremarkable. An appendix is not definitively visualized. No focal inflammatory change adjacent to the cecum. ABDOMINAL WALL: There is a stable fat-containing periumbilical hernia and an additional fat-containing ventral hernia in the midline pelvis, both unchanged from the prior. There is slight fat stranding within the superior umbilical hernia. LYMPH NODES: Normal. VASCULAR: Scattered calcification of the aorta without aneurysmal dilatation. PELVIC VISCERA: Status post hysterectomy. OSSEOUS STRUCTURES: There is a compression deformity at L1, unchanged status post kyphoplasty. There is stable mild height loss along the superior endplate of T9. There is mild multilevel spondylosis without evidence of acute osseous abnormality. IMPRESSION: Although there has been improvement in the inflammatory change seen in the proximal sigmoid colon relative to 05/11/2017, just proximal to this there is new mild inflammatory change involving the distal descending colon. Although there are several diverticula in this region no individual diverticulum appears particularly inflamed. This may reflect an area of colitis or diverticulitis. DICTATED BY: Dena Eubanks MD DATE/TIME DICTATED:05/27/171840 ICT ACCOUNT MANAGER:NINI DATE/TIME TRANSCRIBED:05/27/171840 CONFIDENTIAL, DO NOT COPY WITHOUT APPROPRIATE AUTHORIZATION. <Electronically signed in Other Vendor System> SIGNED BY: Dena Eubanks MD 05/27/17 1855 Initial ED EKG: none, normal intervals, normal p-waves, normal QRS complex, normal sinus rhythm (60) Prior EKG: unchanged (Mario Newell) Plan of Care: Orders Procedure Date/time Status Clear Liquid Diet 05/28 B Active LACTIC ACID 05/27 2216 Active Misc Message 05/27 1943 Active ED Holding Orders 05/27 1943 Active Admit to inpatient 05/27 1943 Active Vital Signs 05/27 1943 Active Code Status 05/27 1943 Active CULTURE,STOOL 05/27 1924 Active C.DIFFICILE 05/27 1924 Active BLOOD CULTURE 05/27 1916 Active LACTIC ACID 05/27 1916 Active TROPONIN LEVEL 05/27 1543 Complete LIPASE 05/27 1543 Complete COMPREHENSIVE METABOLIC PANEL 05/27 1543 Complete CBC WITHOUT DIFFERENTIAL 05/27 1543 Complete EKG 05/27 1542 Active Current Medications Sig/Marissa Start time Last Medication Dose Stop Time Status Admin Ampicillin Sodium/ 3,000 MG ONCE ONE 05/27 1929 AC Sulbactam Sodium 05/27 1958 (Unasyn) Sodium Chloride 100 ML (Normal Saline 0.9%) Sodium Chloride 1,000 ML BOLUS ONE 05/27 1929 AC (Normal Saline 0.9%) 05/27 2028 Laboratory Tests 05/27/17 1552: Anion Gap 10, Estimated GFR > 60, BUN/Creatinine Ratio 26.7 H, Glucose 86, Calcium 8.5, Total Bilirubin 0.2, AST 19, ALT 27, Alkaline Phosphatase 35, Troponin I < 0.01, Total Protein 6.1 L, Albumin 3.6, Globulin 2.5, Albumin/ Globulin Ratio 1.4, Lipase 147, CBC w Diff NO MAN DIFF REQ, RBC 3.88 L, MCV 82.5, MCH 26.7 L, MCHC 32.4 L, RDW 13.8, MPV 7.4, Gran % 55.9, Lymphocytes % 29.7, Monocytes % 10.7 H, Eosinophils % 2.9, Basophils % 0.8, Absolute Granulocytes 2.7, Absolute Lymphocytes 1.4, Absolute Monocytes 0.5, Absolute Eosinophils 0.1, Absolute Basophils 0 Microbiology 05/27 1924 STOOL: Clostridium difficile Toxin A & B - ORD 05/27 1924 STOOL: Stool Culture - ORD 05/27 1916 BLOOD: Blood Culture - ORD 05/27 1916 BLOOD: Blood Culture - ORD Labs ordered old records reviewed CAT scan ordered Patient medicated morphine 2 mg IV IV fluids Unasyn 3 g IV ordered case discussed with Dr. Carlin who agrees with plan given the patient has failed outpatient therapy with Cipro Flagyl and she is require admission for failed outpatient treatment in the past I discussed with her that we premature discharge metacarpal which she is in agreement with. (Heather TAVARES,Mario) (Raegan WAKEFIELD,Karl Landon) Departure Departure Time of Disposition: 1944 Disposition: STILL A PATIENT Condition: Stable Clinical Impression Primary Impression: Diverticulitis Referrals: Marisela Medley MD (PCP/Family) Departure Forms: Customer Survey General Discharge Information Admission Note Spoke With: Emilia Milan MD Documentation of Exam: Documentation of any treatments & extenuating circumstances including Concerns Regarding Discharge (functional status, medication knowledge or non-compliance, living conditions, etc.) that warrant an admission rather than observation: Patient has failed outpatient treatment will require IV antibiotics IV fluids and GI consult trend labs stool cultures IV fluids IV pain medication premature discharge would BE medically harmful (Heather TAVARES,Mario) PA/CANDY DECORATOR Co-Sign Statement Statement: ED Attending supervision documentation- [x] I saw and evaluated the patient. I have also reviewed all the pertinent lab results and diagnostic results. I agree with the findings and the plan of care as documented in the PA's/CANDY DECORATOR's documentation. Patient presents for evaluation of left-sided abdominal pain despite outpatient treatment for diverticulitis. Physical examination reveals left lower quadrant abdominal pain without rebound or guarding. [] I have reviewed the ED Record and agree with the PA's/CANDY DECORATOR's documentation. [] Additions or exceptions (if any) to the PAs/CANDY DECORATOR's note and plan are summarized below: [] (Raegan WAKEFIELD,Karl Landon)
--- NOTE | 2017-05-27 18:55 | CT SCAN REPORT ---
EXAMINATION: CT ABDOMEN AND PELVIS WITH CONTRAST CLINICAL INFORMATION: Left lower quadrant abdominal pain. COMPARISON: CT of the abdomen and pelvis from 05/11/2017. TECHNIQUE: Multidetector volumetric imaging was performed of the abdomen and pelvis following IV administration of 95 mL of Optiray 320 intravenous contrast. Sagittal and coronal reformatted images were obtained on the technologist's workstation. DLP: 825 mGy-cm FINDINGS: LUNG BASES: The visualized lung bases are unremarkable. LIVER, GALLBLADDER, AND BILIARY TREE: The liver is normal in size, shape, and attenuation. No focal hepatic lesion or biliary ductal dilatation is present. There has been prior cholecystectomy. No biliary ductal dilatation. PANCREAS: Unremarkable. SPLEEN: Unremarkable. ADRENAL GLANDS: There is a stable 1.8 cm left adrenal adenoma. KIDNEYS AND URETERS: The kidneys are normal in size, shape, and attenuation. No hydronephrosis, hydroureter, or calculi seen. No perinephric stranding. BLADDER: Under distended. Unremarkable. GASTROINTESTINAL TRACT: There are numerous colonic diverticula. The area of inflammation involving the sigmoid colon seen on 05/11/2017 is improved. There is some mild inflammatory change now visualized along the distal descending colon, slightly more proximally than the previous inflammatory change. There is mild associated wall thickening in this region. There are several diverticula in this area, although none is focally inflamed. No rim-enhancing fluid collection. No extraluminal air. The small bowel loops appear unremarkable. An appendix is not definitively visualized. No focal inflammatory change adjacent to the cecum. ABDOMINAL WALL: There is a stable fat-containing periumbilical hernia and an additional fat-containing ventral hernia in the midline pelvis, both unchanged from the prior. There is slight fat stranding within the superior umbilical hernia. LYMPH NODES: Normal. VASCULAR: Scattered calcification of the aorta without aneurysmal dilatation. PELVIC VISCERA: Status post hysterectomy. OSSEOUS STRUCTURES: There is a compression deformity at L1, unchanged status post kyphoplasty. There is stable mild height loss along the superior endplate of T9. There is mild multilevel spondylosis without evidence of acute osseous abnormality. IMPRESSION: Although there has been improvement in the inflammatory change seen in the proximal sigmoid colon relative to 05/11/2017, just proximal to this there is new mild inflammatory change involving the distal descending colon. Although there are several diverticula in this region no individual diverticulum appears particularly inflamed. This may reflect an area of colitis or diverticulitis.
--- NOTE | 2017-05-27 20:16 | History & Physical ---
Anselmo Hamilton MD 05/27/17 2015: General Information and HPI MD Statement: I have seen and personally examined CORKY MI and documented this H&P. The patient is a 76 year old F who presented with a patient stated chief complaint of [abdominal pain]. Source of Information: patient, old records Exam Limitations: no limitations History of Present Illness: Patient is a 76-year-old female with a PMH significant for hypothyroidism, anxiety/depression, diverticulitis first onset approximately 18 years ago with recurrent episodes in the past year who presents today with abdominal pain. Approximately 2 weeks ago she began having right lower quadrant pain and presented to the ED where she was diagnosed with diverticulitis of the sigmoid colon and prescribed ciprofloxacin and Flagyl. She completed her course and states that she began feeling better but was having significant diarrhea during the course of antibiotics which has persisted. She states she is having for loose nonbloody non-melanotic stools after every meal and increased flatulence. She also states worsening left lower quadrant pain she is now a 10/10. Pain is nonradiating in the left upper abdomen, is made worse with motion and is a more a's worse while walking upstairs. Her pain is currently resolved at rest after receiving IV morphine. The previous pain 2 weeks ago was right lower quadrant and radiated to the left side. She no longer has right lower quadrant pain. Today prior to presentation she had a loose bowel movement during which she reports severe left-sided abdominal pain this, but was also nonbloody. She denies any fever, chills, nausea, vomiting, decreased appetite, chest pain, lightheadedness, dizziness. She does endorse mild headache and very intermittent palpitations less than once a week lasting for only a few seconds. Allergies/Medications Allergies: Coded Allergies: NO KNOWN ALLERGIES (03/09/16) Home Med list Ciprofloxacin HCl (Cipro) 500 MG TABLET 1 TAB PO BID diverticulitis Ciprofloxacin HCl (Cipro) 500 MG TABLET 1 TAB PO BID diverticulitis Escitalopram Oxalate 20 MG TABLET 1 TAB PO DAILY MENTAL HEALTH (Reported) Levothyroxine Sodium 88 MCG TABLET 1 TAB PO DAILY AC THYROID (Reported) Metronidazole (Flagyl) 500 MG TABLET 1 TAB PO TID diverticulitis Metronidazole (Flagyl) 500 MG TABLET 1 TAB PO TID DIVERTICULITIS Tramadol HCl 50 MG TABLET 1-2 TAB PO BIDP PRN pain Tramadol HCl 50 MG TABLET 1-2 TAB PO BIDP PRN PAIN Past History Travel History Traveled to [place] past 21 day No Medical History Neurological: NONE EENT: NONE Cardiovascular: NONE Respiratory: NONE Gastrointestinal: diverticulitis Hepatic: cholelithiasis Renal: NONE Musculoskeletal: NONE Psychiatric: depression Endocrine: hypothyroidism Blood Disorders: NONE Cancer(s): NONE SPECIAL EDUCATION ASSISTANT/Reproductive: NONE History of MRSA: No History of VRE: No History of CDIFF: No Tetanus Vaccine: 03/15/14 Surgical History Surgical History: cholecystectomy, hysterectomy, TONSILECTOMY LUMBAR LAMINECTOMY Past Family/Social History Family History Relations & Conditions if any MOTHER Rectal cancer SISTER FH: breast cancer Psychosocial History Who Do You Live With? granddaughter, great grandson Services at Home: None Primary Language: [place] Smoking Status: Former Smoker (35 pack year hx) ETOH Use: occasional use Illicit Drug Use: denies illicit drug use Functional Ability ADLs Independent: dressing, eating, toileting, bathing. Review of Systems Review of Systems Constitutional: Denies: chills, fever, weakness. EENTM: Denies: blurred vision, double vision, visual changes. Cardiovascular: Reports: palpitations (very intermitent). Denies: chest pain, orthopena, peripheral edema. Respiratory: Denies: cough, short of breath, wheezing. GI: Reports: abdominal pain, diarrhea. Denies: melena, nausea, bloody stool, vomiting. Genitourinary: Reports: no symptoms. Musculoskeletal: Reports: no symptoms. Skin: Reports: no symptoms. Neurological/Psychological: Reports: no symptoms. Exam & Diagnostic Data Last 24 Hrs of Vital Signs/I&O Vital Signs Date Time Temp Pulse Resp B/P B/P Pulse O2 O2 Flow FiO2 Mean Ox Delivery Rate 05/27 2030 98.5 64 18 135/76 99 Room Air 05/27 1816 98.0 80 18 137/73 98 Room Air 05/27 1740 96 05/27 1546 97.6 74 20 136/73 96 Room Air Room Air Intake & Output 05/27 1600 05/27 0800 02 0000 Intake Total Output Total Balance Patient 180 lb Weight Weight Reported by Patient Measurement Method Physical Exam General Appearance Alert, Oriented X3, Cooperative, No Acute Distress Skin Temp/Moisture Exam: Warm/Dry Sepsis Skin Exam (color): Normal for Ethnicity HEENT Atraumatic, PERRLA, EOMI, dry mucous membranes Cardiovascular Regular Rate, Normal S1, Normal S2 Lungs Clear to Auscultation, Normal Air Movement Abdomen Soft, no guarding or rigidity, ttp most severe in LUQ but also TTP in LLQ, no rebound tenderness Neurological Normal Speech, Strength at 5/5 X4 Ext, Normal Tone, Sensation Intact, Cranial Nerves 3-12 NL Extremities No Clubbing, No Cyanosis, No Edema Vascular Normal Pulses, Pulses Symmetrical Sepsis Peripheral Pulse Location: Radial Sepsis Peripheral Pulse Exam: Normal Sepsis Cap Refill Exam: <2 Sec Last 24 Hrs of Labs/Rory: Laboratory Tests 05/27/171999: Lactic Acid 0.7 05/27/17 1552: Anion Gap 10, Estimated GFR > 60, BUN/Creatinine Ratio 26.7 H, Glucose 86, Calcium 8.5, Iron 38, TIBC 342, Total Bilirubin 0.2, AST 19, ALT 27, Alkaline Phosphatase 35, Troponin I < 0.01, Total Protein 6.1 L, Albumin 3.6, Globulin 2.5, Albumin/Globulin Ratio 1.4, Lipase 147, Vitamin B12 Pending, Folate Pending , CBC w Diff NO MAN DIFF REQ, RBC 3.88 L, MCV 82.5, MCH 26.7 L, MCHC 32.4 L, RDW 13.8, MPV 7.4, Gran % 55.9, Lymphocytes % 29.7, Monocytes % 10.7 H, Eosinophils % 2.9, Basophils % 0.8, Absolute Granulocytes 2.7, Absolute Lymphocytes 1.4, Absolute Monocytes 0.5, Absolute Eosinophils 0.1, Absolute Basophils 0 Microbiology 05/27 2129 STOOL: Clostridium difficile Toxin A & B - ORD 05/27 2012 BLOOD: Blood Culture - RECD 05/27 1999 BLOOD: Blood Culture - RECD 05/27 1924 STOOL: Clostridium difficile Toxin A & B - ORD 05/27 1924 STOOL: Stool Culture - ORD Diagnostic Data Other Results CT Abd/pelvis improvement in the inflammatory change seen in the proximal sigmoid colon relative to 05/11/2017, just proximal to this there is new mild inflammatory change involving the distal descending colon. Although there are several diverticula in this region no individual diverticulum appears particularly inflamed. This may reflect an area of colitis or diverticulitis. Assessment/Plan Assessment: Patient is a 76-year-old female with a PMH significant for hypothyroidism, anxiety/depression, diverticulitis first onset approximately 18 years ago with recurrent episodes in the past year who presents today with abdominal pain. Patient was treated 2 weeks ago with ciprofloxacin and Flagyl, also this initially improved her pain she began having diarrhea approximately 4 loose nonbloody bowel movements per day. She denies any fever, chills and has no leukocytosis and is afebrile on exam. CT shows improvement of sigmoid diverticulitis previously seen, however there are no signs of inflammation of the distal descending colon. VS on admission: T 97.6, P 74, RR 20, BP 136/73, pulse ox 96% on room air Labs on admission: WBC 4.8, H/H 10.4/32, platelets 272, PEEP unremarkable, LA 0.7 On the ED patient was given a dose of Unasyn and IV morphine. Patient states that the IV morphine significantly improved her pain to the point that she is not experiencing it with while at rest. Problem list #Possible new diverticulitis or C. difficile colitis. Patient has a history of C. difficile colitis and recently completed a course of ciprofloxacin #Anemia #History of hypothyroidism and anxiety/depression Plan -Admit to general medicine -IV fluid rehydration -Follow-up C. difficile culture -Continue antibiotic coverage with Unasyn -Consult placed for on-call skidder runner -Follow-up iron studies, B12 and folate -Low fiber diet -DVT prophylaxis: Lovenox, ALPS -CODE STATUS: Full code As Ranked By This Provider Problem List: 1. Diverticulitis Core Measures/Misc (01/05) Acute Coronary Syndrome ACS Diagnosis: No Congestive Heart Failure Congestive Heart Failure Diagnosis No Cerebrovascular Accident CVA/TIA Diagnosis: No VTE (View Protocol) VTE Risk Factors Age>40 No Mechanical VTE Prophylaxis d/t N/A MechProphylax Ordered No VTE Pharm Prophylaxis d/t NA PharmProphylax ordered Sepsis (View protocol) Sepsis Present: No Latonya Beckman MD 05/27/172041: Resident Review Statement Resident Statement: examined this patient, discussed with music industry intern Other Findings: H Ms Tomer rodriguez 76 showed female past medical history of diverticulitis, depression and hypothyroidism who presented to the emergency department on the evening 2017 complaining of abdominal pain. Patient states that approximately 2 and half weeks ago she was seen at the emergency department where she was sent home on a dose of ciprofloxacin and Flagyl for diverticulitis. States that she received partial relief from antibiotics however over the last few days she has began to express worsening abdominal pain. Today prior to coming and patient expresses a 10 out of 10 in severity abdominal pain. Pain is located in the left lower quadrant.Pain is worse with movement. Patient also states that she's been having multiple episodes of diarrhea. diarrhea is nonbloody. She endorses bowel movements everytime she eats a meal. Denies any sick contacts. States that she lives at home with her granddaughter and great grandson. R: On review of systems the patient denies any fever, chills, nausea, vomiting she did endorse diarrhea which was associated with her recent antibiotic use. She also endorsed subjective palpitations. E: Temperature 97.6. Pulse 74. Respirations 20. BP 136/73. Saturating 96% on room air. Well-developed well-nourished person in no acute distress HEENT: Normal EENT exam; PERRL, EOMI, HEAD is atraumatic. moist mucous membranes. Neck: Supple, normal range of motion Back: Nontender, no CVA tenderness. Full range of motion Cardiovascular: Regular rate and rhythms no murmur Respiratory: No respiratory distress. Patient speaking in full complete sentences. Breath sounds clear to auscultation bilaterally. Abdomen: Soft,nondistended, no appreciable organomegaly. Normal bowel sounds. No rebound/guarding, LUQ and LLQ significant tenderness. No appreciable enlargement of the abdominal aorta, No ascites. Extremity: No edema, full range of motion of extremities Neuro: Alert oriented x3, motor sensory normal,There were no obvious focal neurologic abnormalities. Skin: No appreciable rash on exposed skin, skin is warm and dry. no diapohesis, no jaundice Psych: Mood and affect is normal, memory and judgment is normal. L: WBC 4.8. H&H 10.4 and 32.0. Platelets 272. Sodium 140. Potassium 4.4. BUN 16. Creatinine 0.6. I SERVICE DATE: 05/27/17 EXAM TYPE: CAT - CT ABD & PELVIS W IV CONTRAST EXAMINATION: CT ABDOMEN AND PELVIS WITH CONTRAST IMPRESSION: Although there has been improvement in the inflammatory change seen in the proximal sigmoid colon relative to 05/11/2017, just proximal to this there is new mild inflammatory change involving the distal descending colon. Although there are several diverticula in this region no individual diverticulum appears particularly inflamed. This may reflect an area of colitis or diverticulitis. DICTATED BY: Dena Eubanks MD/Dena Ms Tomer rodriguez 76 showed female past medical history of diverticulitis, depression and hypothyroidism who presented to the emergency department on the evening 2017 complaining of abdominal pain. Significant pain is the result of diverticulitis as shown on imaging, there could also be a component of colitis. Once patient is more stable, she likley will benefit from a colonoscopy. #Acute diverticulitis versus colitis. #Rule out C.Diff given recent Cipfoloxacin use. #History of hypothyroidism. #Anemia. #History of Depression. Admit the patient to general medical service. Continue IV Unasyn. Obtain GI consultation in a.m. Send C. difficile. Patient may benefit from colonoscopy and will need to be made nothing by mouth with GoLYTELY administration if GI team deem necessary. Gentle IV hydration with normal saline running at 100 mL per hour. Iron studies, B12, folate. Pain relief with morphine Clear liquid diet for now. DVT prophylaxis with Lovenox. Full Code BjornEmilia sharp 05/28/17 0457: Attending MD Review Statement Attending Statement Attending MD Statement: examined this patient, discuss w/resident/PA/COMMERCIAL FLOOR COVERING INSTALLER, agreed w/resident/PA/COMMERCIAL FLOOR COVERING INSTALLER, reviewed EMR data (avail), reviewed images, amended to note Attending Assessment/Plan: CC: Abdominal pain PMH: Hypothyroidism, anxiety and depression Patient came to ER for persistent abdominal pain. She was in ER on May 11, for right lower quadrant abdominal pain, was diagnosed to have diverticulitis and was discharged on oral ciprofloxacin and metronidazole. Patient completed the course and was symptomatically improving with respect to pain. But then she started to notice worsening of pain more so in left lower quadrant. She started to notice diarrhea, for soft bowel movements every day, nonbloody. Not associated with nausea or vomiting, not associated with dizziness. It was associated with severe left-sided abdominal pain. The pain eased after pain medications in ER. Pain was positional. And she had associated fatigue but denies any fever, chills, urinary symptoms, flulike symptoms. She does not recall her last colonoscopy, may be within last 5 years. She had one more episode of diverticulitis last year. Vitals: Afebrile, pulse in 70s, RR 20, blood pressure 136/73, saturating well on room air. On exam: A O 3, cooperative, obese, no acute distress, neck supple, JVD normal, no lymphadenopathy, mucosa moist, no focal neurological deficit, no dependent edema, no obvious skin rashes or inflammation CVS: S1-S2, RRR. RS: Clear to auscultate bilaterally. Abdomen: Soft, tenderness left lower quadrant, no rebound, no rigidity ND, bowel sounds present. Labs: WBC 4.8, hemoglobin 10.4, hematocrit 32.0, platelets 272, MCV 82.5, RDW 13.8, BMP and LFT unremarkable, lactate 0.7, CT abdomen and pelvis with IV contrast Although there has been improvement in the inflammatory change seen in the proximal sigmoid colon relative to 05/11/2017, just proximal to this there is new mild inflammatory change involving the distal descending colon. Although there are several diverticula in this region no individual diverticulum appears particularly inflamed. This may reflect an area of colitis or diverticulitis. Assessment and plan 76-year-old female with history of hypothyroidism and recurrent diverticulitis presented in ER for persistent left lower quadrant pain. Patient was seen in ER on May 11 and was diagnosed to have acute diverticulitis of sigmoid colon. Patient was treated with oral antibiotics with which she improved but then started to notice the pain again now more so in the left lower quadrant associated with diarrhea since last few days. She gets severe abdominal pain while having bowel movement. But denies any nausea, vomiting, dizziness, blood in stool, fever or chills or presyncopal episode. Her CT scan from May 11 reviewed which showed acute diverticulitis in sigmoid colon without complication , location in the same area when she had inflammation on 11/08/2016 and 2016. Of note only one of these episodes were treated in hospital. The other one was treated with by mouth antibiotics from ER. Even after 2 episodes last year patient did not undergo repeat colonoscopy. And now comes back again for inflammatory changes in descending colon. The CT findings are not convincing for diverticulitis but it may be a possibility at the same time colitis could be possibility as well. C. difficile pending. We will get gastroenterology opinion and also for colonoscopy after resolution of acute episode. + Descending Colitis versus diverticulitis + Anemia + History of Hypothyroidism, anxiety and depression - Admit to general medicine - Continue gentle hydration for 1 L - Continue clear liquids - Follow-up C. difficile - Continue Unasyn till then - Consult gastroenterology - Adequate pain control - DVT prophylaxis - Continue home medications
--- NOTE | 2017-05-28 04:58 | Admission Certification ---
Admission Certification Certification Statement - As attending physician, I certify that at the time of - admission, based on clinical presentation, severity of - symptoms, need for further diagnostic testing and - therapeutic interventions, and risk of adverse outcomes - without in-hospital treatment, in my clinical assessment, - this patient requires an acute hospital stay for a minimum - of two nights or longer. I have also considered psychsocial - factors such as support system, advanced age, financial - issues, cognitive issues, and failed out-patient treatments, - past re-admission history, safety of patient, and lack of - compliance as applicable. Specific rationale supporting this admission is: Descending colitis versus diverticulitis
--- NOTE | 2017-05-28 09:12 | PN- Housestaff ---
Maverick WAKEFIELD,You 05/28/17 0911: Subjective Follow-up For: Diverticulitis Subjective: left sided abdominal pain, no nausea, vomiting or diarrhea, no fevers or chills Review of Systems Constitutional: Reports: see HPI. Objective Last 24 Hrs of Vital Signs/I&O Vital Signs Date Time Temp Pulse Resp B/P B/P Pulse O2 O2 Flow FiO2 Mean Ox Delivery Rate 05/28 1504 97.4 62 18 115/56 97 05/28 1231 96.8 66 18 134/663 98 05/28 1003 97.8 64 20 133/61 96 05/28 0804 97.5 67 18 159/70 98 05/28 0638 97.6 64 18 149/69 98 Room Air 05/28 0314 Room Air 05/27 2031 98.5 64 18 135/76 99 Room Air Intake & Output 05/28 1600 05/28 0800 05/28 0000 Intake Total 830 1000 0 Output Total 400 Balance 430 1000 0 Intake, IV 350 1000 Intake, Oral 480 0 Output, Urine 400 Patient 81.647 kg Weight Weight Reported by Patient Measurement Method Physical Exam General Appearance: Alert, Oriented X3, Cooperative, No Acute Distress Cardiovascular: Regular Rate, Normal S1, Normal S2, No Murmurs Lungs: Clear to Auscultation, Normal Air Movement Abdomen: Normal Bowel Sounds, Soft, No Masses, tender left sided abdomen on light palpation Extremities: No Clubbing, No Cyanosis, No Edema, Normal Pulses Current Medications: Current Medications Sig/Marissa Start time Last Medication Dose Route Stop Time Status Admin Ampicillin Sodium/ 0 .STK-MED ONE 05/28 623 DC Sulbactam Sodium .ROUTE Ampicillin Sodium/ 1,500 MG Q6 05/27 2359 05/28 Sulbactam Sodium IV 1835 Sodium Chloride 100 ML Ampicillin Sodium/ 3,000 MG ONCE ONE 05/27 1929 DC 05/27 Sulbactam Sodium IV 05/27 Sodium Chloride 100 ML Cyanocobalamin 1,000 MCG DAILY 05/28 1936 UNVr PO Enoxaparin Sodium 0 .STK-MED ONE 05/28 0750 DC SC Enoxaparin Sodium 0 .STK-MED ONE 05/27 2224 DC SC Enoxaparin Sodium 40 MG DAILY 05/27 2200 AC 05/28 SC 0916 Escitalopram Oxalate 20 MG DAILY 05/28 1000 AC 05/28 PO 0916 Hydrocodone Bitart/ 0 .STK-MED ONE 05/28 1502 DC Acetaminophen PO Hydrocodone Bitart/ 1 TAB Q4P PRN 05/28 1400 AC 05/28 Acetaminophen PO 1458 Levothyroxine Sodium 0.088 MG DAILY AC 05/28 0700 AC 05/28 PO 0707 Morphine Sulfate 0 .STK-MED ONE 05/28 0707 DC .ROUTE Morphine Sulfate 2 MG Q6P PRN 05/27 2100 AC 05/28 IV 0707 Morphine Sulfate 0 .STK-MED ONE 05/27 195 DC .ROUTE Sodium Chloride 1,000 ML Q10H 05/27 2145 DC 05/27 IV 05/28 0744 2227 Sodium Chloride 1,000 ML BOLUS ONE 05/27 1930 DC 05/27 IV 05/27 Tramadol HCl 0 .STK-MED ONE 05/27 2304 DC PO Tramadol HCl 25 MG Q6 PRN 05/27 2100 AC 05/27 PO 2316 Last 24 Hrs of Lab/Rory Results Last 24 Hrs of Labs/Mics: Laboratory Tests 05/27/17 2000: Lactic Acid 0.7 Microbiology 05/28 1833 STOOL: Clostridium difficile Toxin A & B - ORD 05/27 2129 STOOL: Clostridium difficile Toxin A & B - CAN Cancelled: NO SAMPLE COLLECTED 05/27 2012 BLOOD: Blood Culture - RES 05/27 1999 BLOOD: Blood Culture - RES Assessment/Plan Assessment: 76-year-old female with a PMH significant for hypothyroidism, anxiety/depression , diverticulitis starting 18 years ago with several recurrences in the past year presents with left sided abdominal pain. Diverticulitis: recently treated with cipro/flagyl with subsequent diarrhea Afebrile, no leukocytosis CT shows improvemed sigmoid diverticulitis previously seen but there are new signs of inflammation of the distal descending colon. no obstruction, collection or perforation Continue IV Unasyn GI consultation Clear liquids only, advance diet gradually Continue analgesia Follow up C. difficile Anemia: normocytic, vitamin b12 low Vitamin b12 1mcg daily Hypothyroidism: Continue synthroid 88mcg daily ac DVT ppx-lovenox 40mg subcutaneous daily Full code Problem List: 1. Acute diverticulitis Pain Ratin Pain Location: left abdomen Pain Goal: Pain 4 or less Pain Plan: prn Tomorrow's Labs & Rationales: none Elsa Noel MD 05/28/17 1413: Attending MD Review Statement Attending Statement Attending MD Statement: examined this patient, discuss w/resident/PA/SKIN CARE INSTRUCTOR, agreed w/resident/PA/SKIN CARE INSTRUCTOR, reviewed EMR data (avail) Attending Assessment/Plan: 76F PMH anxiety, hypothyroidism, recurrent diverticulitis presenting with several weeks of initially RLQ pain migrating to LLQ, initially diagnosed with acute diverticulitis on 05/11 and given Cipro/Flagyl as an outpatient, with pain and discomfort, with painful defecation worsening since then, repeat imaging showing worsening sigmoid and descending acute diverticulitis. 1. Recurrent acute diverticulitis 2. Failure of outpatient treatment Plan - Continue on general medicine - Continue Unasyn - Stool culture, C.diff - Clear liquid diet - Continue home medications - DVT PPx - DVT PPx
[2017-05-28 22:19] VITALS: BP 140/86
[2017-05-29 06:14] VITALS: BP 157/70
--- NOTE | 2017-05-29 06:49 | PN- Housestaff ---
Maverick WA[place],You 05/29/17 0648: Subjective Follow-up For: Diverticulitis Subjective: persistent left sided abdominal pain, no nausea, vomiting, diarrhea, fevers or chills Review of Systems Constitutional: Reports: no symptoms. Objective Last 24 Hrs of Vital Signs/I&O Vital Signs Date Time Temp Pulse Resp B/P B/P Pulse O2 O2 Flow FiO2 Mean Ox Delivery Rate 05/29 826 97.5 72 18 135/63 99 05/29 0624 97.6 69 18 157/70 98 Room Air 05/29 0614 97.6 69 18 157/70 98 Room Air 05/29 0038 97.8 73 18 136/61 96 Room Air 05/28 2219 98.7 65 18 140/86 98 Room Air 05/28 1504 97.4 62 18 115/56 97 Intake & Output 05/29 1600 05/29 0800 05/29 0000 Intake Total 600 Output Total Balance 600 Intake, Oral 600 Physical Exam General Appearance: Alert, Oriented X3, Cooperative, No Acute Distress Cardiovascular: Regular Rate, Normal S1, Normal S2, No Murmurs Lungs: Clear to Auscultation, Normal Air Movement Abdomen: Normal Bowel Sounds, Soft, No Masses, Left sided abdominal tenderness on palpation Extremities: No Clubbing, No Cyanosis, No Edema, Normal Pulses Current Medications: Current Medications Sig/Marissa Start time Last Medication Dose Route Stop Time Status Admin Ampicillin Sodium/ 1,500 MG Q6 05/29 1800 UNVr Sulbactam Sodium IV Sodium Chloride 100 ML Ampicillin Sodium/ 0 .STK-MED ONE 05/29 0551 DC Sulbactam Sodium .ROUTE Ampicillin Sodium/ 0 .STK-MED ONE 05/29 0047 DC Sulbactam Sodium .ROUTE Ampicillin Sodium/ 1,500 MG Q6 05/27 2359 DC 05/29 Sulbactam Sodium IV 0611 Sodium Chloride 100 ML Ciprofloxacin 0 .STK-MED ONE 05/29 1146 DC PO Ciprofloxacin 500 MG BID 05/29 1000 DC 05/29 PO 06/02 0959 1148 Cyanocobalamin 1,000 MCG DAILY 05/28 1937 AC 05/29 PO 1148 Diphenhydramine HCl 25 MG ONCE ONE 05/28 2230 DC 05/28 PO 05/28 Diphenhydramine HCl 0 .STK-MED ONE 02/07 2227 DC PO Enoxaparin Sodium 40 MG DAILY 05/27 2200 AC 05/29 SC 1148 Escitalopram Oxalate 20 MG DAILY 05/28 1000 AC 05/29 PO 1148 Hydrocodone Bitart/ 0 .STK-MED ONE 05/28 1502 DC Acetaminophen PO Hydrocodone Bitart/ 1 TAB Q4P PRN 05/28 1400 AC 05/28 Acetaminophen PO 1458 Levothyroxine Sodium 0.088 MG DAILY AC 05/28 0700 AC 05/29 PO 0611 Metronidazole 250 MG Q8 05/29 1400 DC 05/29 PO 1356 Metronidazole 0 .STK-MED ONE 05/29 1350 DC PO Morphine Sulfate 2 MG Q6P PRN 05/27 2100 AC 05/28 IV 0707 Tramadol HCl 0 .STK-MED ONE 05/28 2228 DC PO Tramadol HCl 25 MG Q6 PRN 05/27 2100 AC 05/28 PO 2227 Last 24 Hrs of Lab/Rory Results Last 24 Hrs of Labs/Mics: Microbiology 05/29 823 STOOL: Clostridium difficile Toxin A & B - COMP Assessment/Plan Assessment: 76-year-old female with a PMH significant for hypothyroidism, anxiety/depression , diverticulitis starting 18 years ago with several recurrences in the past year presents with left sided abdominal pain. Diverticulitis: recently treated with cipro/flagyl with subsequent diarrhea Afebrile, no leukocytosis CT shows improvemed sigmoid diverticulitis previously seen but there are new signs of inflammation of the distal descending colon. no obstruction, collection or perforation Continue IV Unasyn Advance diet Changing to PO antibiotics with ciprofloxacin/flagyl Continue analgesia with vicodin Repeat C. difficile Anemia: normocytic, vitamin b12 low Vitamin b12 1mcg daily Hypothyroidism: Continue synthroid 88mcg daily ac Heart healthy low fiber diet DVT ppx-lovenox 40mg subcutaneous daily Full code Problem List: 1. Diverticulitis of colon 2. Hypothyroid 3. 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 Feels better today. Still with LLQ pain but improving. Tolerating diet well. 1. Recurrent acute diverticulitis 2. Failure of outpatient treatment Plan - Continue on general medicine - Continue Unasyn - Stool culture, C.diff - Advance diet as tolerated - Continue home medications - DVT PPx
--- NOTE | 2017-05-29 13:10 | Discharge Summary ---
Visit Information Visit Dates Admission Date: 05/27/17 Discharge Date: 05/30/17 Hospital Course Course Attending Physician: Elsa Noel MD Primary Care Physician: Marisela Medley MD Hospital Course: 76-year-old female with a PMH significant for hypothyroidism, anxiety/depression , diverticulitis starting 18 years ago with several recurrences in the past year presents with left sided abdominal pain. Diverticulitis: recently treated with cipro/flagyl with subsequent diarrhea Afebrile, no leukocytosis CT shows improvemed sigmoid diverticulitis previously seen but there are new signs of inflammation of the distal descending colon. no obstruction, collection or perforation C diff negative Continue IV Unasyn Tolerated regular diet well Change to PO antibiotics for discharge with ciprofloxacin plus flagyl or augmentin for 10-14 days Anemia: normocytic, vitamin b12 low Vitamin b12 1mcg daily Hypothyroidism: Continue synthroid 88mcg daily ac Heart healthy low fiber diet Allergies: Coded Allergies: NO KNOWN ALLERGIES (03/09/16) Disposition Summary Disposition Principal Diagnosis: Recurrent acute diverticulitis Discharge Instructions Medications at Discharge Discharge Medications: Continue taking these medications: Levothyroxine Sodium (Levothyroxine Sodium) 88 MCG TABLET 1 Tablet ORAL DAILY BEFORE BREAKFAST Comments: Last Taken:05/30/17 Time: 06:48A.M Escitalopram Oxalate (Escitalopram Oxalate) 20 MG TABLET 1 Tablet ORAL DAILY Qty = 30 Comments: Last Taken:05/30/17 Time:09:50A.M Tramadol HCl (Tramadol HCl) 50 MG TABLET 1-2 Tablet ORAL 2 x Daily as needed as needed for PAIN Qty = 12 Comments: Last Taken:05/28/17 Time:10:30P.M Start taking the following new medications: Cyanocobalamin (Vitamin B-12) (Vitamin B12) 2,500 MCG TABLET 1 Tablet ORAL DAILY Qty = 30 No Refills Instructions: . Comments: Last Taken:05/30/17 Time:9:50A.M The following medications have been changed: Old: Ciprofloxacin HCl (Cipro) 500 MG TABLET 1 Tablet ORAL TWICE DAILY Qty = 20 New: Ciprofloxacin HCl (Cipro) 500 MG TABLET 1 Tablet ORAL TWICE DAILY Qty = 20 Instructions: . Comments: Last Taken:05/29/17 Time:1200P.M Old: Metronidazole (Flagyl) 500 MG TABLET 1 Tablet ORAL THREE TIMES DAILY Qty = 30 New: Metronidazole (Flagyl) 500 MG TABLET 1 Tablet ORAL THREE TIMES DAILY Qty = 30 Instructions: . Comments: Last Taken:05/29/17 Time:2P.M
[2017-05-29 15:32] VITALS: BP 119/59
[2017-05-29 16:44] VITALS: BP 110/60
[2017-05-29 22:37] VITALS: BP 123/51
[2017-05-30 05:45] VITALS: BP 122/76
--- NOTE | 2017-05-30 06:51 | PN- Housestaff ---
See Addendum Subjective Follow-up For: diverticulitis Subjective: tolerated regular diet without any problems abdominal pain substantially improved without overnight analgesics no nausea, vomiting, afebrile, c diff negative Review of Systems Constitutional: Reports: see HPI. Objective Last 24 Hrs of Vital Signs/I&O Vital Signs Date Time Temp Pulse Resp B/P B/P Pulse O2 O2 Flow FiO2 Mean Ox Delivery Rate 05/30 0545 97.6 67 20 122/76 98 Room Air 05/29 2237 98.9 67 18 123/51 98 Room Air 05/29 1644 97.9 72 19 110/60 97 Room Air 05/29 1532 97.6 84 18 119/59 96 Room Air 05/29 1530 97.6 84 18 119/59 96 Room Air Intake & Output 05/30 1600 05/30 0800 05/30 0000 Intake Total 260 1140 Output Total 350 900 Balance -90 240 Intake, IV 110 140 Intake, Oral 150 1000 Number 0 Bowel Movements Output, Urine 350 900 Physical Exam General Appearance: Alert, Oriented X3, Cooperative, No Acute Distress Cardiovascular: Regular Rate, Normal S1, Normal S2, No Murmurs Lungs: Clear to Auscultation, Normal Air Movement Abdomen: Normal Bowel Sounds, Soft, No Masses, minimal left sided tenderness on deep palpation Extremities: No Clubbing, No Cyanosis, No Edema, Normal Pulses Current Medications: Current Medications Sig/Marissa Start time Last Medication Dose Route Stop Time Status Admin Ampicillin Sodium/ 1,500 MG Q6H 05/30 0300 AC 05/30 Sulbactam Sodium IV 0206 Sodium Chloride 100 ML Ampicillin Sodium/ 1,500 MG Q6 05/29 1800 DC 05/29 Sulbactam Sodium IV 2102 Sodium Chloride 100 ML Ampicillin Sodium/ 1,500 MG Q6 05/27 2359 DC 05/29 Sulbactam Sodium IV 0611 Sodium Chloride 100 ML Ciprofloxacin 0 .STK-MED ONE 05/29 1146 DC PO Ciprofloxacin 500 MG BID 05/29 1000 DC 05/29 PO 06/02 0959 1148 Cyanocobalamin 1,000 MCG DAILY 05/28 1937 AC 05/29 PO 1148 Enoxaparin Sodium 40 MG DAILY 05/27 2200 AC 05/29 SC 1148 Escitalopram Oxalate 20 MG DAILY 05/28 1000 AC 05/29 PO 1148 Hydrocodone Bitart/ 1 TAB Q4P PRN 05/28 1400 AC 05/28 Acetaminophen PO 1458 Levothyroxine Sodium 0.088 MG DAILY AC 05/28 0700 AC 05/30 PO 0648 Metronidazole 250 MG Q8 05/29 1400 DC 05/29 PO 1356 Metronidazole 0 .STK-MED ONE 05/29 1350 DC PO Morphine Sulfate 2 MG Q6P PRN 05/27 2100 AC 05/29 IV 1908 Tramadol HCl 25 MG Q6 PRN 05/27 2100 AC 05/28 PO 2227 Assessment/Plan Assessment: 76-year-old female with a PMH significant for hypothyroidism, anxiety/depression , diverticulitis starting 18 years ago with several recurrences in the past year presents with left sided abdominal pain. Diverticulitis: recently treated with cipro/flagyl with subsequent diarrhea Afebrile, no leukocytosis CT shows improvemed sigmoid diverticulitis previously seen but there are new signs of inflammation of the distal descending colon. no obstruction, collection or perforation C diff negative Continue IV Unasyn Tolerated regular diet well Change to PO antibiotics for discharge with ciprofloxacin plus flagyl or augmentin for 10-14 days Anemia: normocytic, vitamin b12 low Vitamin b12 1mcg daily Hypothyroidism: Continue synthroid 88mcg daily ac Heart healthy low fiber diet DVT ppx-lovenox 40mg subcutaneous daily Full code Problem List: 1. Acute diverticulitis 2. Hypothyroid Pain Ratin Pain Location: left side abdominal Pain Goal: Pain 4 or less Pain Plan: prn Tomorrow's Labs & Rationales: none
[2017-05-30] MEDS ORDERED: VITAMIN B122500 MC1 PO ×2 (08:40→10:20)
[2017-05-30] MEDS ORDERED: CIPRO500 M1 PO ×2 (08:40→10:20)
[2017-05-30] MEDS ORDERED: FLAGYL500 MG PO ×2 (08:40→10:20)
--- NOTE | 2017-05-30 09:21 | Patient Discharge Instructions ---
Acute Coronary Syndrome Inclusion Criteria At DC or during hospital stay patient has or had the following: Discharge Core Measures Meds if any: Prescribed or Continued at Discharge Meds if any: NOT Prescribed or Continued at Discharge Congestive Heart Failure Inclusion Criteria At DC or during hospital stay patient has or had the following: Discharge Core Measures Meds if any: Prescribed or Continued at Discharge Meds if any: NOT Prescribed or Continued at Discharge Cerebrovascular accident Inclusion Criteria At DC or during hospital stay patient has or had the following: CVA/TIA Diagnosis No Discharge Core Measures Meds if any: Prescribed or Continued at Discharge Meds if any: NOT Prescribed or Continued at Discharge Venous thromboembolism Discharge Core Measures - Per Current guidelines, there needs to be overlap - treatment for the first 5 days of Warfarin therapy. - If discharged on Warfarin prior to 5 days of - overlap therapy, the patient will need to be - assessed for post discharge needs including - *Post discharge parental anticoagulation - *Warfarin and/or parental anticoagulation education - *Follow up date to check INR post discharge Meds if any: Prescribed or Continued at Discharge Note: Overlap Therapy is Warfarin and Anticoagulant Meds if any: NOT Prescribed or Continued at Discharge
[2017-05-30 14:58] VITALS: BP 128/78
== END 2017-05-30 15:43 | DRG 392 ==
LOC: ERH 15:41 → 2NB 19:44 → ERHI 19:44 → ENRESERV 05-29 14:46 → ENTRNSPT 05-29 16:06 → 2NB 05-29 16:35 → EDTRNSPT 05-29 16:40 → CMPTRNSPT 05-29 16:45 → ENPENDDIS 05-30 10:48 → 2NB 05-30 15:43
PROVIDERS: Physician Assistant Medical
DX: K57.32 Diverticulitis of large intestine without perforation or abscess without bleeding (principal); D64.9 Anemia, unspecified; E03.9 Hypothyroidism, unspecified; F32.9 Major depressive disorder, single episode, unspecified; Z87.891 Personal history of nicotine dependence; F41.9 Anxiety disorder, unspecified
CPT/HCPCS: 2NBSP; ERO; 74177; 87040; 87045; 93005; 93010; J1650